=== PATIENT | male | born 1950 | race Caucasian/White ===

== ENCOUNTER 2017-03-31 22:51 | Emergency (ER) | payer OTHER ==
[2017-03-31 23:02] VITALS: BP 123/62; BMI 28.1
--- NOTE | 2017-03-31 23:29 | DR.GENAD ---
HPI - PCP Primary Care Physician: Lei Diego - Complaint/Symptoms Chief Complaint Doctors Comments: Patient had tripple by past surgery two weeks ago. Chief Complaint:: Pt states "that he thinks he over done it today and that he is hurting between shoulder blades pain strated when he layed down for bed. stated that she gave him a nitro and it eased it off some." - Source History Provided: Patient - Mode of Arrival Mode of Arrival: Wheelchair - Timing Onset of Chief Complaint: 03/31/17 PMH - PMH Past Medical History: Yes Past Medical History: Coronary Artery Disease, Diabetes, Hypertension Past Surgical History: Yes Surgical History: Other Past Surgical History Comment: 3x heart bypass - Family History History of Family Medical Conditions: Yes Family Medical History: Diabetes Mellitus, Cancer, [place], Coronary Artery Disease - Social History Alcohol Use: None Do you use any recreational Drugs:: No Lives With: Family Lives Where: Home - infectious screening Have you traveled outside the country in the last 6 months?: No ROS - Review of Systems Eyes: No Symptoms Reported ENTM: No Symptoms Reported Respiratoy: No Symptoms Reported Cardiovascular: No Symptoms Reported Gastrointestinal/Abdominal: No Symptoms Reported Genitourinary: No Symptoms Reported Neurological: No Symptoms Reported Musculoskeletal: No Symptoms Reported Integumentary: No Symptoms Reported Hematologic/Lymphatic: No Symptoms Reported Endocrine: No Symptoms Reported Psychiatric: No Symptoms Reported All Other Systems: Reviewed and Negative PE - Vital Signs Vitals: Temperature 98.4 F Pulse Rate 76 Respiratory Rate 18 Blood Pressure 123/62 O2 Sat by Pulse Oximetry 100 - General General Appearance: Alert, In No Apparent Distress - Head Head Exam: Normal Inspection, Atraumatic - Eyes Eye exam: Normal Appearance, PERRL, Scleral Icterus - ENT ENT Exam: Normal Exam External Ear Exam: Normal External Inspection TM/Canal Exam: Bilateral Normal Nose Exam: Normal Nose Exam Mouth Exam: Normal Inspection Throat Exam: Normal Inspection - Neck Neck Exam: Normal Inspection - Chest Chest Inspection: Normal Inspection - Respiratory Respiratory Exam: Normal Lung Sounds Bilat Respiratory Exam: Bilateral Clear to Auscultation - Cardiovascular Cardiovascular Exam: Regular Rate - Abdominal Exam Abdominal Exam: Normal Inspection Abdominal Tenderness: negative: RUQ, RLQ, LUQ, LLQ, Epigastrium, Suprapubic, Diffuse, Mild, Moderate, Severe, Other - Extremities Extremities Exam: Normal Inspection - Back Back Exam: Normal Inspection - Neurologic Neurological Exam: Alert, Oriented X3, CN II-XII Intact - Psychiatric Psychiatric Exam: Normal Affect, Normal Mood - Skin Skin Exam: Warm, Dry, Intact Course - Reevaluation 1st: Improved ROR - Labs Reviewed Laboratory Results Reviewed?: Yes Result Diagrams: 03/31/17 23:30 03/31/17 23:30 Laboratory: WBC 7.0 X10^3/uL (3.6-10.0) 03/31/17 23:30 RBC 3.80 X10^6/uL (4.7-6.0) L 03/31/17 23:30 Hgb 11.3 g/dL (13.5-18.0) L 03/31/17 23:30 Hct 32.9 % (42.0-54.0) L 03/31/17 23:30 MCV 86.7 fL (80.0-100.0) 03/31/17 23:30 MCH 29.8 pg (27.0-34.0) 03/31/17 23:30 MCHC 34.4 g/dL (33.0-35.0) 03/31/17 23:30 RDW 14.2 % (11.6-16.5) 03/31/17 23:30 Plt Count 212 X10^3/uL (150.0-450.0) 03/31/17 23:30 MPV 8.1 fL (7.4-11.0) 03/31/17 23:30 Neut % 64.7 % (42.0-75.0) 03/31/17 23:30 Lymph % 18.9 % (21.0-51.0) L 03/31/17 23:30 [place] % 8.8 % (0.0-13.0) 03/31/17 23:30 Eos % 6.8 % (0.9-2.9) H 03/31/17 23:30 Baso % 0.8 % (0.2-1.0) 03/31/17 23:30 Neut # 4.5 x10^3/uL (2.2-4.8) 03/31/17 23:30 Lymph # 1.3 X10^3/uL (1.3-2.9) 03/31/17 23:30 [place] # 0.6 x10^3/uL (0.3-0.8) 03/31/17 23:30 Eos # 0.5 x10^3/uL (0.0-0.2) H 03/31/17 23:30 Baso # 0.1 X10^3/uL (0.0-0.1) 03/31/17 23:30 Absolute Nucleated RBC 0.1 /100WBC 03/31/17 23:30 INR Target Range - 03/31/17 23:30 INR 1.08 (0.8-1.3) 03/31/17 23:30 Sodium 132 mmol/L (136-145) L 03/31/17 23:30 Corrected Sodium 137 mmol/L (136-145) 03/31/17 23:30 Potassium 4.3 mmol/L (3.5-5.1) 03/31/17 23:30 Chloride 99 mmol/L (98-107) 03/31/17 23:30 Carbon Dioxide 22.8 mmol/L (21-32) 03/31/17 23:30 BUN 31 mg/dL (7-18) H 03/31/17 23:30 Creatinine 1.75 mg/dL (0.70-1.30) H 03/31/17 23:30 Est GFR (MDRD) Af Amer 51 (>60) L 03/31/17 23:30 Est GFR (MDRD) Non-Af 42 (>60) L 03/31/17 23:30 Glucose 297 mg/dL (65-99) H 03/31/17 23:30 Calcium 8.7 mg/dL (8.5-10.1) 03/31/17 23:30 Corrected Calcium 9.6 mg/dL (8.5-10.1) 03/31/17 23:30 Phosphorus 3.4 mg/dL (2.6-4.7) 03/31/17 23:30 Magnesium 1.8 mg/dL (1.7-2.9) 03/31/17 23:30 Total Bilirubin 0.60 mg/dL (0.2-1.0) 03/31/17 23:30 AST 22 Units/L (15-37) 03/31/17 23:30 ALT 48 Units/L (12-78) 03/31/17 23:30 Alkaline Phosphatase 178 Units/L (46-116) H 03/31/17 23:30 Creatine Kinase 90 Units/L (39-308) 03/31/17 23:30 CK-MB (CK-2) 2.2 ng/mL (0-4.0) 03/31/17 23:30 CK/CKMB % Calc 2.4 % (<4) 03/31/17 23:30 Troponin I 0.02 ng/mL (0-1.5) 03/31/17 23:30 Total Protein 6.6 g/dL (6.4-8.2) 03/31/17 23:30 Albumin 2.9 g/dL (3.4-5.0) L 03/31/17 23:30 Globulin 3.7 g/dL (2.5-4.5) 03/31/17 23:30 Albumin/Globulin Ratio 0.8 Ratio (1.1-2.1) L 03/31/17 23:30 - XRAY XRAY Interpreted by: Radiologist (Chest: no cardiopulmonary disease) - Diagnosis Discharge Problem: Chest pain, exertional - Discharge Plan Condition: Stable - Follow ups/Referrals Follow ups/Referrals: LEI DIEGO [Primary Care Provider] - 3 days - Instructions
[2017-03-31 23:42] LABS: BASOPHILS # (AUTO) 0.1 X10^3/uL (0.0-0.1); BASOPHILS % (AUTO) 0.8 % (0.2-1.0); EOSINOPHILS # (AUTO) 0.5 x10^3/uL (0.0-0.2); EOSINOPHILS % (AUTO) 6.8 % (0.9-2.9); HEMATOCRIT 32.9 % (42.0-54.0); HEMOGLOBIN 11.3 g/dL (13.5-18.0); LYMPHOCYTES # (AUTO) 1.3 X10^3/uL (1.3-2.9); LYMPHOCYTES % (AUTO) 18.9 % (21.0-51.0); MEAN CORPUSCULAR HEMOGLOBIN 29.8 pg (27.0-34.0); MEAN CORPUSCULAR HGB CONC 34.4 g/dL (33.0-35.0); MEAN CORPUSCULAR VOLUME 86.7 fL (80.0-100.0); MEAN PLATELET VOLUME 8.1 fL (7.4-11.0); MONOCYTES # (AUTO) 0.6 x10^3/uL (0.3-0.8); MONOCYTES % (AUTO) 8.8 % (0.0-13.0); NEUTROPHILS # (AUTO) 4.5 x10^3/uL (2.2-4.8); NEUTROPHILS % (AUTO) 64.7 % (42.0-75.0); PLATELET COUNT 212 X10^3/uL (150.0-450.0); RED CELL DISTRIBUTION WIDTH 14.2 % (11.6-16.5)
[2017-03-31 23:58] LABS: CALCIUM 8.7 mg/dL (8.5-10.1); CARBON DIOXIDE 22.8 mmol/L (21-32); CREATININE 1.75 mg/dL (0.70-1.30); TROPONIN I 0.02 ng/mL (0-1.5)
[2017-04-01 00:12] LABS: ALBUMIN 2.9 g/dL (3.4-5.0); CKMB % 2.4 % (<4); COR CA(FOR HYPOALB) 9.6 mg/dL (8.5-10.1); CREATINE KINASE MB 2.2 ng/mL (0-4.0); MAGNESIUM 1.8 mg/dL (1.7-2.9); PHOSPHORUS 3.4 mg/dL (2.6-4.7); TOTAL PROTEIN 6.6 g/dL (6.4-8.2)
--- NOTE | 2017-04-01 00:22 | RAD ---
AP Chest Indication: Pain between shoulder blades Comparison: None available Findings: The trachea is midline. The cardiac silhouette is unremarkable. Previous median sternotomy is note d. Multiple clips are noted within the left thyroid bed/lower neck soft tissues. The lungs are clear without focal infiltrate or effusion. There is elevation left hemidiaphragm with suspected subsegme ntal atelectasis within the left lower lobe. The bony thorax is unremarkable. IMPRESSION: 1. No acute cardiopulmonary abnormality. Reported By:
== END 2017-04-01 00:42 | disposition home or self-care (01) ==
LOC: ER 22:51
DX: R07.89 Other chest pain (principal)
CPT/HCPCS: 36415; 71010; 80053; 82550; 82553; 83735; 84100; 84484; 85025; 85610; 93005; 93010; 99283

== ENCOUNTER 2017-11-18 10:06 | Emergency (ER) | payer OTHER ==
[2017-11-18 10:24] VITALS: BMI 29.2
[2017-11-18] MEDS ORDERED: NS 1000 ML 1,000 ML ONE (10:34)
[2017-11-18] MEDS ORDERED: NS 1000 ML 1,000 ML IV ONE (10:36)
[2017-11-18] MEDS ORDERED: ZOFRAN INJ 4 MG VIAL IVP ONE (10:40)
--- NOTE | 2017-11-18 10:45 | DR.GENAD ---
HPI - PCP Primary Care Physician: BETH - Complaint/Symptoms Chief Complaint Doctors Comments: Patient is complaining of nausea, vomiting and diarrhea for the past 24 hours getting worst today. He denies fever, chills , cold, cough, chest pain or SOB. States he has been having severe vertigo yesterday before the others started. He has decreased appetite and has not had much to eat today. states he started with vertigo at 8 am and the vomiting followed. States he is a patient of Dr. Whaley and he has a problem with diabetes and high blood pressure but he has not had any of his medicines today. Patient slide down last night but did not have any injuries according to family members. Patient is complaining of lower abdominal pain but denies hematuria or raina. Chief Complaint:: PT C/O N/V/D WEAKNESS, VERTIGO, AND ABD PAIN THAT HAS STARTED LAST NIGHT. PT'S STATES PT HAS A HISTORY OF VERTIGO AND HE SLID DOWN LAST NIGHT OUT OF THE BED W/O INJURY. - Nurses notes reviewed Nurses Notes Review: Yes - Source History Provided: Patient, EMS - Mode of Arrival Mode of Arrival: EMS - Timing Onset of Chief Complaint: 11/17/17 Came on: Gradually - Duration Duration: Intermittent How lon Duration: Hours - Location Location: lower abdominal pain with nasuea, diarrhea - Severity Severity: Moderate - Modifying Factors Worsens:: nothing Improves:: nothing PMH - PMH Past Medical History: Yes Past Medical History: Coronary Artery Disease, CVA, Diabetes, Hypertension Past Surgical History: Yes Surgical History: CABG/Valve Surgery, Other Past Surgical History Comment: CARDOIT ARTERY - Family History History of Family Medical Conditions: Yes Family Medical History: Diabetes Mellitus, Cancer, [place], Coronary Artery Disease - Social History Does any household member use tobacco: No Alcohol Use: None Do you use any recreational Drugs:: No Lives With: Family Lives Where: Home - infectious screening In the last 2 months have you had wt loss of >10#?: NO Have you had fever, night sweats or hemotysis?: No Have you traveled outside the country in the last 6 months?: No Isolation: Standard ROS - Review of Systems Constitutional: No Symptoms Reported, Weakness, Fatigue, Loss of Appetite Eyes: No Symptoms Reported. negative: See HPI, Eye Pain, Blurred Vision, Tearing, Discharge, Photophobia, Diplopia, Other ENTM: No Symptoms Reported. negative: See HPI, Ear Pain, Ear Discharge, Pulling on Ears, Hearing Loss, Nose Pain, Nose Discharge, Epistaxis, Nose Congestion, Mouth Pain, Mouth Swelling, Loose Teeth, Drooling, Throat Pain, Throat Swelling, Ear Foreign Body Respiratoy: No Symptoms Reported Cardiovascular: No Symptoms Reported. negative: See HPI, Chest Pain, Edema, Palpitations, Syncope, Cyanosis, Skin Mottling, Other Gastrointestinal/Abdominal: Abdominal Pain, Diarrhea, Nausea, Vomiting. negative: No Symptoms Reported, See HPI, Constipation, Food Intolerance, Other Genitourinary: No Symptoms Reported. negative: See HPI, Discharge, Dysuria, Frequency, Hematuria, Pain, Bleeding, Other Neurological: No Symptoms Reported, Weakness, Dizziness, Problems Walking, Speech Problem. negative: See HPI, Anxiety, Depressed, Emotional Problems, Headache, Numbness, Paresthesia, Pre-existing Deficit, Seizure, Tingling, Tremors, Other Musculoskeletal: No Symptoms Reported Integumentary: No Symptoms Reported Hematologic/Lymphatic: No Symptoms Reported, Easy Bleeding (lesions on hand that burst and bleeds), Easy Bruising Endocrine: No Symptoms Reported Psychiatric: No Symptoms Reported. negative: See HPI, Anxiety, Depression, Hallucinations, Excessive crying, Suicidal, Other PE - Vital Signs Vitals: Temperature 97.2 F Pulse Rate [Right Radial] 74 Pulse Rate 73 Respiratory Rate 18 Blood Pressure [Left Arm] 138/73 Blood Pressure 102/57 O2 Sat by Pulse Oximetry 100 - General Limitations: No Limitations General Appearance: Alert, In Distress (slight) - Head Head Exam: Normal Inspection, Atraumatic, Normocephalic - Eyes Eye exam: Normal Appearance, PERRL, EOMI. negative: Scleral Icterus, Conjunctival Injection, Nystagmus, Miosis, Mydrasis, Periorbital Swelling, Periorbital Tenderness, Other - ENT ENT Exam: Normal Exam, Normal Oropharynx, Normal External Ear Exam, Mucous Membranes Moist, TM's Normal Bilaterally External Ear Exam: Normal External Inspection TM/Canal Exam: Bilateral Normal Nose Exam: Normal Nose Exam Mouth Exam: Normal Inspection. negative: Drooling, Trismus, Lip Swelling, Tongue Elevation, Tongue Swelling, Laceration, Other Throat Exam: Normal Inspection. negative: Tonsillar Erythema, Tonsillomegaly, Tonsillar Exudate, R Peritonsillar Mass, L Peritonsillar Mass, Muffled Voice, Other - Neck Neck Exam: Normal Inspection, Full ROM, Trachea Midline - Chest Chest Inspection: Normal Inspection, Symmetric Chest Wall Rise. negative: Tenderness, Rash, Abscess, Other - Respiratory Respiratory Exam: Normal Lung Sounds Bilat. negative: Accessory Muscle Use, Chest Wall Tenderness, Prolonged Expiratory Phase, Respiratory Distress, Stridor , Other Respiratory Exam: Bilateral Clear to Auscultation - Cardiovascular Cardiovascular Exam: Regular Rate, Normal Rhythm, Normal Heart Sounds - Abdominal Exam Abdominal Exam: Normal Inspection, Normal Bowel Sounds, Soft, Tenderness ( slight suprapubic tenderness) Abdominal Tenderness: Suprapubic, Mild - Extremities Extremities Exam: Normal Inspection, Full ROM, Normal Capillary Refill. negative: Tenderness, Edema, Joint Swelling, Calf Tenderness, Other - Back Back Exam: Normal Inspection, Full ROM. negative: Tenderness, (R) CVA Tenderness, (L) CVA Tenderness, Muscle Spasm, Paraspinal Tenderness, Vertebral Tenderness, Rashes, (R) Sciatic Notch Tenderness, (L) Sciatic Notch Tendern, (R ) Straight Leg Raise, (L) Straight Leg Raise, Other - Neurologic Neurological Exam: Alert, Oriented X3, CN II-XII Intact, Reflexes Normal. negative: Normal Gait (gait not tested) - Psychiatric Psychiatric Exam: Normal Affect, Normal Mood. negative: Depressed, Agitated, Anxious, Flat Affect, Manic, Homicidal Ideation, Suicidal Ideation, Other - Skin Skin Exam: Warm, Dry, Intact, Normal Color. negative: Rash, Cyanosis, Diaphoresis, Erythema, Pallor, Mottled, Other ROR - Labs Reviewed Laboratory Results Reviewed?: Yes (all labs and x-ray results reviewed and discussed with patient) Result Diagrams: 11/18/17 10:52 11/18/17 10:52 Laboratory: WBC 4.0 X10^3/uL (3.6-10.0) 11/18/17 10:52 RBC 4.56 X10^6/uL (4.7-6.0) L 11/18/17 10:52 Hgb 14.2 g/dL (13.5-18.0) 11/18/17 10:52 Hct 40.6 % (42.0-54.0) L 11/18/17 10:52 MCV 89.1 fL (80.0-100.0) 11/18/17 10:52 MCH 31.1 pg (27.0-34.0) 11/18/17 10:52 MCHC 34.8 g/dL (33.0-35.0) 11/18/17 10:52 RDW 13.9 % (11.6-16.5) 11/18/17 10:52 Plt Count 115 X10^3/uL (150.0-450.0) L 11/18/17 10:52 MPV 9.1 fL (7.4-11.0) 11/18/17 10:52 Neut % 75.3 % (42.0-75.0) H 11/18/17 10:52 Lymph % 15.4 % (21.0-51.0) L 11/18/17 10:52 [place] % 8.6 % (0.0-13.0) 11/18/17 10:52 Eos % 0.4 % (0.9-2.9) L 11/18/17 10:52 Baso % 0.3 % (0.2-1.0) 11/18/17 10:52 Neut # 3.0 x10^3/uL (2.2-4.8) 11/18/17 10:52 Lymph # 0.6 X10^3/uL (1.3-2.9) L 11/18/17 10:52 [place] # 0.3 x10^3/uL (0.3-0.8) 11/18/17 10:52 Eos # 0.0 x10^3/uL (0.0-0.2) 11/18/17 10:52 Baso # 0.0 X10^3/uL (0.0-0.1) 11/18/17 10:52 Absolute Nucleated RBC 0.1 /100WBC 11/18/17 10:52 INR Target Range - 11/18/17 10:52 INR 1.11 (0.8-1.3) 11/18/17 10:52 PTT 30.9 SECONDS (22.9-36.5) 11/18/17 10:52 PTT Comment - 11/18/17 10:52 Sodium 133 mmol/L (136-145) L 11/18/17 10:52 Corrected Sodium 135 mmol/L (136-145) L 11/18/17 10:52 Potassium 5.2 mmol/L (3.5-5.1) H 11/18/17 10:52 Chloride 99 mmol/L (98-107) 11/18/17 10:52 Carbon Dioxide 25.1 mmol/L (21-32) 11/18/17 10:52 BUN 34 mg/dL (7-18) H 11/18/17 10:52 Creatinine 2.03 mg/dL (0.70-1.30) H 11/18/17 10:52 Est GFR (MDRD) Af Amer 43 (>60) L 11/18/17 10:52 Est GFR (MDRD) Non-Af 35 (>60) L 11/18/17 10:52 Glucose 198 mg/dL (65-99) H 11/18/17 10:52 Calcium 8.6 mg/dL (8.5-10.1) 11/18/17 10:52 Corrected Calcium TNP 11/18/17 10:52 Magnesium 2.0 mg/dL (1.7-2.9) 11/18/17 10:52 Total Bilirubin 0.60 mg/dL (0.2-1.0) 11/18/17 10:52 AST 30 Units/L (15-37) 11/18/17 10:52 ALT 47 Units/L (12-78) 11/18/17 10:52 Alkaline Phosphatase 105 Units/L (46-116) 11/18/17 10:52 Creatine Kinase 243 Units/L (39-308) 11/18/17 10:52 CK-MB (CK-2) 1.4 ng/mL (0-4.0) 11/18/17 10:52 CK/CKMB % Calc 0.6 % (<4) 11/18/17 10:52 Troponin I < 0.02 ng/mL (0-1.5) 11/18/17 10:52 Total Protein 7.2 g/dL (6.4-8.2) 11/18/17 10:52 Albumin 3.4 g/dL (3.4-5.0) 11/18/17 10:52 Globulin 3.8 g/dL (2.5-4.5) 11/18/17 10:52 Albumin/Globulin Ratio 0.9 Ratio (1.1-2.1) L 11/18/17 10:52 Amylase 50 Units/L (25-115) 11/18/17 10:52 Lipase 121 Units/L (73-393) 11/18/17 10:52 - XRAY XRAY Interpreted by: Radiologist (CT head: No definite evidence of an acute intracranial process. Chronic infarctionleft MCA. Chronic bilateral punctate lacunar infarctions basal ganglia.) XRAY Findings: Abdominal survey: Unremarkable abdomen Lungs clear. Elevated left hemidiap - EKG Rate: 79 [place]: Normal Rhythm: NSR ST: Nonsp - Diagnosis Discharge Problem: Gastroenteritis, acute, Cerebrovascular accident, old, Hyperkalemia, Vertigo Diabetes mellitus Qualifiers: Diabetes mellitus type: type 2 - Discharge Plan Disposition: HOME, SELF-CARE Condition: Stable Prescriptions: Meclizine HCl [Antivert Tab 25 mg] 25 mg PO TID PRN #21 tab PRN Reason: MOTION SICKNESS Ondansetron [Zofran Odt] 4 mg PO Q8H PRN #12 tab PRN Reason: Nausea/Vomiting - Follow ups/Referrals Follow ups/Referrals: MAGALY CAMPOS [Primary Care Provider] - 3 days - Instructions Instructions: Viral Gastroenteritis, Adult, [id number]-[id number], Vertigo, [id number] , Hyperkalemia, Type 2 Diabetes Mellitus, Adult, [id number]
[2017-11-18 11:14] LABS: BASOPHILS % (AUTO) 0.3 % (0.2-1.0); EOSINOPHILS % (AUTO) 0.4 % (0.9-2.9); HEMATOCRIT 40.6 % (42.0-54.0); HEMOGLOBIN 14.2 g/dL (13.5-18.0); LYMPHOCYTES # (AUTO) 0.6 X10^3/uL (1.3-2.9); LYMPHOCYTES % (AUTO) 15.4 % (21.0-51.0); MEAN CORPUSCULAR HEMOGLOBIN 31.1 pg (27.0-34.0); MEAN CORPUSCULAR HGB CONC 34.8 g/dL (33.0-35.0); MEAN CORPUSCULAR VOLUME 89.1 fL (80.0-100.0); MEAN PLATELET VOLUME 9.1 fL (7.4-11.0); MONOCYTES # (AUTO) 0.3 x10^3/uL (0.3-0.8); MONOCYTES % (AUTO) 8.6 % (0.0-13.0); NEUTROPHILS % (AUTO) 75.3 % (42.0-75.0); PLATELET COUNT 115 X10^3/uL (150.0-450.0); RED BLOOD COUNT 4.56 X10^6/uL (4.7-6.0); RED CELL DISTRIBUTION WIDTH 13.9 % (11.6-16.5)
[2017-11-18] MEDS ORDERED: ZOFRAN INJ 4 MG VIAL ONE (11:14)
[2017-11-18 11:28] LABS: ALANINE AMINOTRANSFERASE 47 Units/L (12-78); ALBUMIN 3.4 g/dL (3.4-5.0); ALKALINE PHOSPHATASE 105 Units/L (46-116); AMYLASE 50 Units/L (25-115); ASPARTATE AMINO TRANSFERASE 30 Units/L (15-37); BLOOD UREA NITROGEN 34 mg/dL (7-18); CALCIUM 8.6 mg/dL (8.5-10.1); CARBON DIOXIDE 25.1 mmol/L (21-32); CHLORIDE 99 mmol/L (98-107); CKMB % 0.6 % (<4); COR NA(FOR HYPERGLY) 135 mmol/L (136-145); CREATINE KINASE 243 Units/L (39-308); CREATINE KINASE MB 1.4 ng/mL (0-4.0); CREATININE 2.03 mg/dL (0.70-1.30); LIPASE 121 Units/L (73-393); SODIUM 133 mmol/L (136-145); TOTAL PROTEIN 7.2 g/dL (6.4-8.2); TROPONIN I < 0.02 ng/mL (0-1.5); eGFR BLACK RACES 43 (>60); eGFR NON BLACK RACES 35 (>60)
--- NOTE | 2017-11-18 12:09 | CT ---
CT HEAD WITHOUT CONTRAST CLINICAL HISTORY: 66-year-old male with nausea, vomiting and diarrhea with weakness and vertigo. COMPARISON: None. TECHNIQUE: Multiple, non-contrasted axial CT images were obtained from the skull base to the cranial vertex. Coronal and sagittal reformats were performed. FINDINGS: There are no abnormal intra- or extra-axial fluid collections, midline shift, or mass effec t. Hekc-white differentiation is normal. Global cortical involutional changes are present that are ad vanced for the patient's stated age. The ventricular system is mildly enlarged but commensurate with the degree of sulcal prominence. Chronic infarction in the left MCA territory involving the posterior aspect of the frontal lobe with associated encephalomalacia, chronic bilateral punctate lacunar infa rctions of the basal ganglia. Periventricular and supraventricular white matter hypodensity is presen t that is nonspecific in appearance, but most likely to represent microvascular ischemic changes. Ath erosclerotic vascular calcification is present within the carotid siphons and distal vertebral arteri es. The imaged paranasal sinuses, mastoid air cells, and tympanic spaces are clear. IMPRESSION: 1. No definite evidence of an acute intracranial process. If clinical concern persists for acute stro ke, consider MRI/MRA brain. 2. Chronic infarction left MCA territory with encephalomalacia involving the posterior aspect of the frontal lobe. 3. Chronic bilateral punctate lacunar infarctions basal ganglia. 4. Moderate microvascular white matter ischemic changes, with associated volume loss. Reported By:
--- NOTE | 2017-11-18 12:25 | RAD ---
HISTORY: Nausea, vomiting, abdominal pain Study: Flat and upright abdomen, PA chest Comparison: None Findings: The abdominal gas pattern is nonspecific and nonobstructive. There is no evidence for pneumoperitoneu m. No abnormal masses or abnormal calcifications are identified. The chest is clear. The left hemidia phragm is elevated. IMPRESSION: Unremarkable abdomen Lungs clear Elevated left hemidiaphragm Reported By:
[2017-11-18 13:06] VITALS: BP 138/73
== END 2017-11-18 15:22 | disposition home or self-care (01) ==
LOC: ER 10:15
DX: K52.89 Other specified noninfective gastroenteritis and colitis (principal); I63.8 Other cerebral infarction; E87.5 Hyperkalemia; R42 Dizziness and giddiness; E11.9 Type 2 diabetes mellitus without complications; J98.6 Disorders of diaphragm
CPT/HCPCS: 36415; 70450; 74022; 80053; 82150; 82550; 82553; 83690; 83735; 84484; 85025; 85610; 85730; 93005; 93010; 96365; 96374; 99283; 99284; A4216; A4222; J2405

== ENCOUNTER 2018-10-11 10:02 | Observation (INO) ==
[2018-10-11] MEDS ORDERED: FORTAZ or TAZICEF VIAL INJ IVP SCH (12:19)
[2018-10-11] MEDS ORDERED: TUSSIONEX PENNKINETIC SUSP PO PRN (12:19)
[2018-10-11] MEDS: DUONEB 0.5 MG/3 MG NEB SCH ×3 (12:45→20:30)
[2018-10-11 12:48] LABS: BASOPHILS % (AUTO) 0.5 % (0.2-1.0); EOSINOPHILS % (AUTO) 0.8 % (0.9-2.9); HEMATOCRIT 39.1 % (42.0-54.0); HEMOGLOBIN 13.7 g/dL (13.5-18.0); LYMPHOCYTES # (AUTO) 1.5 X10^3/uL (1.3-2.9); LYMPHOCYTES % (AUTO) 23.6 % (21.0-51.0); MEAN CORPUSCULAR HEMOGLOBIN 31.4 pg (27.0-34.0); MEAN CORPUSCULAR HGB CONC 35.1 g/dL (33.0-35.0); MEAN CORPUSCULAR VOLUME 89.4 fL (80.0-100.0); MEAN PLATELET VOLUME 8.7 fL (7.4-11.0); MONOCYTES # (AUTO) 0.6 x10^3/uL (0.3-0.8); MONOCYTES % (AUTO) 9.4 % (0.0-13.0); NEUTROPHILS # (AUTO) 4.1 x10^3/uL (2.2-4.8); NEUTROPHILS % (AUTO) 65.7 % (42.0-75.0); PLATELET COUNT 119 X10^3/uL (150.0-450.0); RED BLOOD COUNT 4.37 X10^6/uL (4.7-6.0); RED CELL DISTRIBUTION WIDTH 13.5 % (11.6-16.5); WHITE BLOOD COUNT 6.2 X10^3/uL (3.6-10.0)
[2018-10-11 13:01] LABS: ALANINE AMINOTRANSFERASE 12 Units/L (12-78); ALBUMIN 3.4 g/dL (3.4-5.0); ALKALINE PHOSPHATASE 128 Units/L (46-116); ASPARTATE AMINO TRANSFERASE 37 Units/L (15-37); BLOOD UREA NITROGEN 34 mg/dL (7-18); CALCIUM 8.9 mg/dL (8.5-10.1); CARBON DIOXIDE 27.3 mmol/L (21-32); CHLORIDE 99 mmol/L (98-107); COR NA(FOR HYPERGLY) 134 mmol/L (136-145); CREATININE 1.85 mg/dL (0.70-1.30); SODIUM 133 mmol/L (136-145); eGFR NON BLACK RACES 39 (>60)
[2018-10-11] MEDS ORDERED: NS 1/2 1000 ML IV 1,000 ML IV ONE (13:15)
[2018-10-11] MEDS: NS 1/2 1000 ML IV 1,000 ML IV SCH (13:41)
[2018-10-11] MEDS: ROBITUSSIN DM PO SCH ×3 (13:42→20:18)
--- NOTE | 2018-10-11 13:48 | RAD ---
HISTORY: Right side rib pain following fall Study: Right rib detail Comparison: None Technique: PA chest lateral chest and right rib obliques films (4) Findings: There is elevation the left hemidiaphragm which is chronic unchanged from 04/01/2017. There are sternotomy wires and surgical clips along the left heart border and in the left apex. The heart size and configuration are normal. The upper abdominal bowel gas pattern is normal. There are sternotomy fixation plates across the sternum from prior sternotomy. Right ribs and left ribs are normal. The lungs are clear there are no infiltrates or effusions. There is no pneumothorax. IMPRESSION: 1. Normal chest and right rib detail. Prior sternotomy. Chronic elevation left hemidiaphragm. 2. Normal T-spine and normal right rib detail no acute or old rib fractures identified. Reported By:
[2018-10-11] MEDS ORDERED: LEVAQUIN PREMIX IV 500 MG 500 MG/100 ML BAG IV SCH (14:00)
[2018-10-11] MEDS: SINEMET (PLAIN) 25/250 MG PO SCH ×2 (14:59→20:19)
[2018-10-11 15:11] VITALS: BMI 29.5
[2018-10-11] MEDS ORDERED: FLUVIRIN IM ONE (15:11)
[2018-10-11] MEDS ORDERED: PREVNAR 13 IM ONE (15:11)
[2018-10-11] MEDS ORDERED: SALINE 3% 15 ML NEB TX NEB ONE (17:24)
[2018-10-11] MEDS: FORTAZ or TAZICEF VIAL INJ IVP SCH (20:18)
[2018-10-11] MEDS ORDERED: COLACE CAP 100 MG PO PRN (20:21)
[2018-10-12] MEDS: NS 1/2 1000 ML IV 1,000 ML IV SCH ×2 (02:30→16:50)
[2018-10-12] MEDS ORDERED: NS 1/2 1000 ML IV 1,000 ML IV ONE ×2 (02:43→16:43)
[2018-10-12 05:15] LABS: BASOPHILS % (AUTO) 0.4 % (0.2-1.0); EOSINOPHILS % (AUTO) 0.6 % (0.9-2.9); HEMOGLOBIN 13.1 g/dL (13.5-18.0); LYMPHOCYTES # (AUTO) 1.7 X10^3/uL (1.3-2.9); LYMPHOCYTES % (AUTO) 31.7 % (21.0-51.0); MEAN CORPUSCULAR HEMOGLOBIN 31.6 pg (27.0-34.0); MEAN CORPUSCULAR HGB CONC 35.3 g/dL (33.0-35.0); MEAN CORPUSCULAR VOLUME 89.3 fL (80.0-100.0); MEAN PLATELET VOLUME 8.2 fL (7.4-11.0); MONOCYTES # (AUTO) 0.5 x10^3/uL (0.3-0.8); MONOCYTES % (AUTO) 9.7 % (0.0-13.0); NEUTROPHILS # (AUTO) 3.1 x10^3/uL (2.2-4.8); NEUTROPHILS % (AUTO) 57.6 % (42.0-75.0); PLATELET COUNT 104 X10^3/uL (150.0-450.0); RED BLOOD COUNT 4.14 X10^6/uL (4.7-6.0); RED CELL DISTRIBUTION WIDTH 13.5 % (11.6-16.5); WHITE BLOOD COUNT 5.4 X10^3/uL (3.6-10.0)
[2018-10-12 05:22] LABS: CALCIUM 8.8 mg/dL (8.5-10.1); CARBON DIOXIDE 25.3 mmol/L (21-32); COR CA(FOR HYPOALB) 9.6 mg/dL (8.5-10.1); CREATININE 1.71 mg/dL (0.70-1.30); TOTAL PROTEIN 6.6 g/dL (6.4-8.2)
--- NOTE | 2018-10-12 05:52 | RAD ---
Chest, one view Indication: Shortness of breath Comparison: 10/11/2018 Findings: The heart is stable in size. Prior CABG changes noted. There is stable elevation of the left hemidiaphragm. No focal infiltrate, effusion or pneumothorax is identified. There is no acute osseous abnormality. Impression: No acute cardiopulmonary abnormality or significant interval change. Reported By:
[2018-10-12] MEDS: FORTAZ or TAZICEF VIAL INJ IVP SCH ×2 (08:51→20:15)
[2018-10-12] MEDS: SINEMET (PLAIN) 25/250 MG PO SCH ×3 (08:51→20:16)
[2018-10-12] MEDS: ROBITUSSIN DM PO SCH ×4 (08:51→20:16)
[2018-10-12] MEDS: DUONEB 0.5 MG/3 MG NEB SCH ×4 (08:58→20:47)
[2018-10-12] MEDS ORDERED: NITROSTAT SL PRN (09:52)
[2018-10-12] MEDS ORDERED: ANTIVERT TAB 25 MG PO PRN (09:52)
[2018-10-12] MEDS ORDERED: VITAMIN D (1.25MG) PO SCH (10:00)
[2018-10-12] MEDS: SILODOSIN 4 MG PO SCH (10:58)
[2018-10-12] MEDS: ALDACTONE TAB 25 MG PO SCH (11:01)
[2018-10-12] MEDS: ASPIRIN EC 81 MG PO SCH (11:01)
[2018-10-12] MEDS: REQUIP PO SCH ×2 (11:01→20:15)
[2018-10-12] MEDS: LOVAZA PO SCH (11:01)
[2018-10-12] MEDS: LOPRESSOR TAB 25 MG PO SCH ×2 (11:01→20:16)
[2018-10-12] MEDS: ZyrTEC TAB 10 MG PO SCH (11:02)
[2018-10-12] MEDS: TAB-A-VITE PO SCH (11:02)
[2018-10-12] MEDS: HumuLIN R SC PRN ×3 (11:57→20:17)
[2018-10-12] MEDS: ULORIC PO SCH (16:51)
[2018-10-12] MEDS ORDERED: PREVNAR 13 IM ONE (18:29)
--- NOTE | 2018-10-12 20:31 | DR.UPDATE ---
H&P Update History and Physical Update: History and Physical reviewed and patient examined. Changes noted: Yes with the following: WAS SEEN IN THE OFFICE BY MARQUISE BOYD YESTERDAY. HE WAS ADMITTED TO THE HOSPITAL FOR FURTHER EVALUATION AND TREATMENT OF PNEUMONIA, DEHYDRATION, AND GENERALIZED WEAKNESS. A H&P WAS COMPLETED PRIOR TO ADMISSION. PATIENT HAS BEEN SEEN AND EXAMINED WITH NO CHANGES NOTED TO H&P.
[2018-10-12] MEDS ORDERED: AVODART PO SCH (21:00)
[2018-10-13] MEDS ORDERED: NS 1/2 1000 ML IV 1,000 ML IV ONE (04:52)
[2018-10-13] MEDS: NS 1/2 1000 ML IV 1,000 ML IV SCH (05:29)
[2018-10-13] MEDS: HumuLIN R SC PRN (05:31)
--- NOTE | 2018-10-13 05:54 | RAD ---
Examination: AP chest History: SOB Comparison 10/12/2018 Findings: Continued normal heart size. Lungs clear of active process. Stable position of the elevated left hemidiaphragm. No pneumothorax or pleural fluid. Impression: No interval change. Reported By:
[2018-10-13 06:48] LABS: BASOPHILS % (AUTO) 0.4 % (0.2-1.0); EOSINOPHILS # (AUTO) 0.1 x10^3/uL (0.0-0.2); EOSINOPHILS % (AUTO) 2.6 % (0.9-2.9); HEMATOCRIT 34.8 % (42.0-54.0); HEMOGLOBIN 12.5 g/dL (13.5-18.0); LYMPHOCYTES # (AUTO) 1.6 X10^3/uL (1.3-2.9); LYMPHOCYTES % (AUTO) 31.9 % (21.0-51.0); MEAN CORPUSCULAR HEMOGLOBIN 31.5 pg (27.0-34.0); MEAN CORPUSCULAR HGB CONC 35.8 g/dL (33.0-35.0); MEAN CORPUSCULAR VOLUME 87.9 fL (80.0-100.0); MEAN PLATELET VOLUME 8.3 fL (7.4-11.0); MONOCYTES # (AUTO) 0.4 x10^3/uL (0.3-0.8); MONOCYTES % (AUTO) 9.2 % (0.0-13.0); NEUTROPHILS # (AUTO) 2.7 x10^3/uL (2.2-4.8); NEUTROPHILS % (AUTO) 55.9 % (42.0-75.0); PLATELET COUNT 101 X10^3/uL (150.0-450.0); RED BLOOD COUNT 3.96 X10^6/uL (4.7-6.0); RED CELL DISTRIBUTION WIDTH 13.7 % (11.6-16.5); WHITE BLOOD COUNT 4.9 X10^3/uL (3.6-10.0)
[2018-10-13 06:57] LABS: ALANINE AMINOTRANSFERASE 31 Units/L (12-78); ALBUMIN 2.9 g/dL (3.4-5.0); ALKALINE PHOSPHATASE 123 Units/L (46-116); ASPARTATE AMINO TRANSFERASE 42 Units/L (15-37); BLOOD UREA NITROGEN 27 mg/dL (7-18); CALCIUM 8.9 mg/dL (8.5-10.1); CARBON DIOXIDE 24.6 mmol/L (21-32); CHLORIDE 99 mmol/L (98-107); COR CA(FOR HYPOALB) 9.8 mg/dL (8.5-10.1); COR NA(FOR HYPERGLY) 133 mmol/L (136-145); CREATININE 1.44 mg/dL (0.70-1.30); SODIUM 132 mmol/L (136-145); TOTAL PROTEIN 6.4 g/dL (6.4-8.2); eGFR NON BLACK RACES 52 (>60)
[2018-10-13] MEDS: DUONEB 0.5 MG/3 MG NEB SCH (08:41)
[2018-10-13] MEDS ORDERED: FERROUS GLUCONATE PO SCH (09:00)
[2018-10-13] MEDS ORDERED: VITAMIN D (1.25MG) PO SCH (09:00)
[2018-10-13] MEDS: ULORIC PO SCH (09:40)
[2018-10-13] MEDS: LOVAZA PO SCH (09:41)
[2018-10-13] MEDS: ALDACTONE TAB 25 MG PO SCH (09:42)
[2018-10-13] MEDS: REQUIP PO SCH (09:42)
[2018-10-13] MEDS: ZyrTEC TAB 10 MG PO SCH (09:42)
[2018-10-13] MEDS: SINEMET (PLAIN) 25/250 MG PO SCH ×3 (09:43→12:11)
[2018-10-13] MEDS: ASPIRIN EC 81 MG PO SCH (09:44)
[2018-10-13] MEDS: TAB-A-VITE PO SCH (09:44)
[2018-10-13] MEDS: LOPRESSOR TAB 25 MG PO SCH (09:44)
[2018-10-13] MEDS: ROBITUSSIN DM PO SCH (09:45)
[2018-10-13] MEDS: FORTAZ or TAZICEF VIAL INJ IVP SCH (09:45)
[2018-10-13] MEDS: SILODOSIN 4 MG PO SCH (09:57)
[2018-10-13] MEDS ORDERED: FLUVIRIN IM ONE (11:50)
[2018-10-13] MEDS ORDERED: PNEUMOVAX 23 IM ONE (11:50)
[2018-10-13 12:40] VITALS: BP 161/75
== END 2018-10-13 12:25 | disposition home or self-care (01) ==
LOC: MED/SURG
PROVIDERS: ADMIT Internal Medicine; ATTEND Internal Medicine
DX: I25.10 Atherosclerotic heart disease of native coronary artery without angina pectoris; M13.89 Other specified arthritis, multiple sites; E86.0 Dehydration; N18.9 Chronic kidney disease, unspecified; I12.9 Hypertensive chronic kidney disease with stage 1 through stage 4 chronic kidney disease, or unspecified chronic kidney disease; R13.11 Dysphagia, oral phase; M62.81 Muscle weakness (generalized); J18.8 Other pneumonia, unspecified organism; Z23 Encounter for immunization
CPT/HCPCS: 36415; 71010; 71045; 71111; 80053; 85025; 87040; 92610; 94640; 94760; 97161; 99217; A4222; 90670; G0378; J0713; J1815; J1956; J7620

== ENCOUNTER 2019-04-27 20:47 | Inpatient (IN) ==
[2019-04-27 21:22] VITALS: BMI 29.1
--- NOTE | 2019-04-27 23:34 | DR.GENAD ---
HPI Time Seen Time Seen by Provider: 04/27/19 23:14 PCP Primary Care Physician: MAGALY CAMPOS Complaint/Symptoms Chief Complaint:: " HE HAS A COLD HE HAS BEEN COUGHING AND HAVING DIFFICULTY WALKING AND VOMITING. ALSO HAVING PAIN IN HIS RIGHT SIDE AROUND HIS BREAST AREA. THIS ALL STARTED YESTERDAY HE SEEN HIS PRIMARY YESTERDAY AND THEY GAVE HIM A ROCEPHIN SHOT. Source History Provided: Patient and Family Member Mode of Arrival Mode of Arrival: Wheelchair Timing Onset of Chief Complaint: 04/26/19 PMH PMH Past Medical History: Yes Past Medical History: Coronary Artery Disease, CVA, Diabetes and Hypertension Past Surgical History: Yes Surgical History: CABG/Valve Surgery and Other Past Surgical History Comment: TRIPLE BYPASS 2016 Family History History of Family Medical Conditions: Yes Family Medical History: Cancer and [place] Social History Alcohol Use: None Do you use any recreational Drugs:: No Lives Where: Home infectious screening Have you traveled outside the country in the last 6 months?: No PE Vital Signs Vitals: Temperature 98.0 F Pulse Rate 86 Respiratory Rate 18 Blood Pressure [Left Arm] 161/75 Blood Pressure 124/58 O2 Sat by Pulse Oximetry 97 ROR Labs Reviewed Result Diagrams: 04/27/19 23:27 04/27/19 23:27 Laboratory: WBC 12.8 X10^3/uL (3.6-10.0) H 04/27/19 23:27 RBC 3.79 X10^6/uL (4.7-6.0) L 04/27/19 23:27 Hgb 11.9 g/dL (13.5-18.0) L 04/27/19 23:27 Hct 34.6 % (42.0-54.0) L 04/27/19 23:27 MCV 91.3 fL (80.0-100.0) 04/27/19 23:27 MCH 31.5 pg (27.0-34.0) 04/27/19 23:27 MCHC 34.6 g/dL (33.0-35.0) 04/27/19 23:27 RDW 13.7 % (11.6-16.5) 04/27/19 23:27 Plt Count 148 X10^3/uL (150.0-450.0) L 04/27/19 23:27 MPV 8.8 fL (7.4-11.0) 04/27/19 23:27 Neut % (Auto) 87.9 % (42.0-75.0) H 04/27/19 23:27 Lymph % (Auto) 6.2 % (21.0-51.0) L 04/27/19 23:27 [place] % (Auto) 5.6 % (0.0-13.0) 04/27/19 23: Eos % (Auto) 0.1 % (0.9-2.9) L 04/27/19 23: Baso % (Auto) 0.2 % (0.2-1.0) 04/27/19 23: Neut # (Auto) 11.2 x10^3/uL (2.2-4.8) H 04/27/19 23:27 Lymph # (Auto) 0.8 X10^3/uL (1.3-2.9) L 04/27/19 23:27 [place] # (Auto) 0.7 x10^3/uL (0.3-0.8) 04/27/19 23: Eos # (Auto) 0.0 x10^3/uL (0.0-0.2) 04/27/19 23: Baso # (Auto) 0.0 X10^3/uL (0.0-0.1) 04/27/19 23: Absolute Nucleated RBC 0.0 /100WBC 04/27/19 23:27 Sodium 129 mmol/L (136-145) L 04/27/19 23:27 Corrected Sodium 132 mmol/L (136-145) L 04/27/19 23: Potassium 4.6 mmol/L (3.5-5.1) 04/27/19 23: Chloride 97 mmol/L (98-107) L 04/27/19 23: Carbon Dioxide 21.9 mmol/L (21-32) 04/27/19 23: BUN 27 mg/dL (7-18) H 04/27/19 23:27 Creatinine 1.99 mg/dL (0.70-1.30) H 04/27/19 23:27 Est GFR (MDRD) Af Amer 43 (>60) L 04/27/19 23:27 Est GFR (MDRD) Non-Af 36 (>60) L 04/27/19 23:27 Glucose 238 mg/dL (65-99) H 04/27/19 23:27 Calcium 9.2 mg/dL (8.5-10.1) 04/27/19 23:27 Corrected Calcium 10.2 mg/dL (8.5-10.1) H 04/27/19 23:27 Total Bilirubin 1.10 mg/dL (0.2-1.0) H 04/27/19 23:27 AST 12 Units/L (15-37) L 04/27/19 23:27 ALT 8 Units/L (12-78) L 04/27/19 23:27 Alkaline Phosphatase 145 Units/L (46-116) H 04/27/19 23:27 Total Protein 7.1 g/dL (6.4-8.2) 04/27/19 23:27 Albumin 2.7 g/dL (3.4-5.0) L 04/27/19 23:27 Globulin 4.4 g/dL (2.5-4.5) 04/27/19 23:27 Albumin/Globulin Ratio 0.6 Ratio (1.1-2.1) L 04/27/19 23:27 Opioid Opioid Risk Tool Total: 0 Total Score Risk Category: Low Risk Copyright: Brayan LOVELL predicting aberrant behaviors Instructions Forms: Excuse From Work
[2019-04-27] MEDS ORDERED: ZOFRAN INJ 4 MG VIAL IVP ONE (23:37)
[2019-04-27] MEDS ORDERED: NS 1000 ML 1,000 ML IV ONE (23:42)
[2019-04-27] MEDS ORDERED: NS 1000 ML 1,000 ML ONE (23:44)
[2019-04-27] MEDS ORDERED: ZOFRAN INJ 4 MG VIAL ONE (23:44)
[2019-04-27 23:55] LABS: BASOPHILS % (AUTO) 0.2 % (0.2-1.0); EOSINOPHILS % (AUTO) 0.1 % (0.9-2.9); HEMATOCRIT 34.6 % (42.0-54.0); HEMOGLOBIN 11.9 g/dL (13.5-18.0); LYMPHOCYTES # (AUTO) 0.8 X10^3/uL (1.3-2.9); LYMPHOCYTES % (AUTO) 6.2 % (21.0-51.0); MEAN CORPUSCULAR HEMOGLOBIN 31.5 pg (27.0-34.0); MEAN CORPUSCULAR HGB CONC 34.6 g/dL (33.0-35.0); MEAN CORPUSCULAR VOLUME 91.3 fL (80.0-100.0); MEAN PLATELET VOLUME 8.8 fL (7.4-11.0); MONOCYTES # (AUTO) 0.7 x10^3/uL (0.3-0.8); MONOCYTES % (AUTO) 5.6 % (0.0-13.0); NEUTROPHILS # (AUTO) 11.2 x10^3/uL (2.2-4.8); NEUTROPHILS % (AUTO) 87.9 % (42.0-75.0); PLATELET COUNT 148 X10^3/uL (150.0-450.0); RED BLOOD COUNT 3.79 X10^6/uL (4.7-6.0); RED CELL DISTRIBUTION WIDTH 13.7 % (11.6-16.5); WHITE BLOOD COUNT 12.8 X10^3/uL (3.6-10.0)
[2019-04-28 00:05] LABS: ALBUMIN 2.7 g/dL (3.4-5.0); CALCIUM 9.2 mg/dL (8.5-10.1); CARBON DIOXIDE 21.9 mmol/L (21-32); COR CA(FOR HYPOALB) 10.2 mg/dL (8.5-10.1); CREATININE 1.99 mg/dL (0.70-1.30); TOTAL PROTEIN 7.1 g/dL (6.4-8.2)
--- NOTE | 2019-04-28 01:30 | RAD ---
Chest radiograph, single view. History: Cough. Comparison: 10/13/2018. Findings: The cardiac silhouette is enlarged with median sternotomy changes. There is a moderate right basilar pleural parenchymal opacity, likely reflecting pleural effusion and adjacent airspace disease. There is elevation of the left hemidiaphragm. The left lung is largely clear. No acute osseous findings. Conclusion: Right basilar pleural parenchymal opacity, concerning for pneumonia and adjacent pleural effusion. Reported By:
[2019-04-28] MEDS ORDERED: ROCEPHIN VIAL 1 GRAM IVP ONE (01:41)
[2019-04-28] MEDS ORDERED: ROCEPHIN VIAL 1 GRAM ONE (02:00)
[2019-04-28] MEDS ORDERED: LEVAQUIN PREMIX IV 750 MG 750 MG/150 ML BAG IV ONE ×2 (02:25→02:42)
[2019-04-28] MEDS ORDERED: TUSSIONEX PENNKINETIC SUSP PO PRN (03:14)
[2019-04-28] MEDS ORDERED: SALINE 3% 15 ML NEB TX NEB ONE (03:25)
[2019-04-28] MEDS ORDERED: SALINE 3% 15 ML NEB TX ONE (03:29)
[2019-04-28] MEDS ORDERED: DUONEB 0.5 MG/3 MG ONE (03:53)
[2019-04-28] MEDS ORDERED: NS 1/2 1000 ML IV 1,000 ML IV SCH (04:00)
[2019-04-28] MEDS: DUONEB 0.5 MG/3 MG NEB SCH ×5 (04:10→21:02)
[2019-04-28] MEDS ORDERED: NORCO 5/325 MG TAB PO PRN (04:45)
[2019-04-28 05:29] LABS: BASOPHILS % (AUTO) 0.2 % (0.2-1.0); EOSINOPHILS % (AUTO) 0.2 % (0.9-2.9); HEMATOCRIT 31.6 % (42.0-54.0); HEMOGLOBIN 10.9 g/dL (13.5-18.0); LYMPHOCYTES # (AUTO) 1.5 X10^3/uL (1.3-2.9); LYMPHOCYTES % (AUTO) 12.2 % (21.0-51.0); MEAN CORPUSCULAR HEMOGLOBIN 31.1 pg (27.0-34.0); MEAN CORPUSCULAR HGB CONC 34.4 g/dL (33.0-35.0); MEAN CORPUSCULAR VOLUME 90.5 fL (80.0-100.0); MEAN PLATELET VOLUME 8.3 fL (7.4-11.0); MONOCYTES # (AUTO) 0.7 x10^3/uL (0.3-0.8); MONOCYTES % (AUTO) 5.9 % (0.0-13.0); NEUTROPHILS % (AUTO) 81.5 % (42.0-75.0); PLATELET COUNT 129 X10^3/uL (150.0-450.0); RED CELL DISTRIBUTION WIDTH 13.8 % (11.6-16.5); WHITE BLOOD COUNT 12.3 X10^3/uL (3.6-10.0)
[2019-04-28 05:44] LABS: ALBUMIN 2.3 g/dL (3.4-5.0); CALCIUM 8.8 mg/dL (8.5-10.1); CARBON DIOXIDE 23.6 mmol/L (21-32); COR CA(FOR HYPOALB) 10.2 mg/dL (8.5-10.1); CREATININE 1.77 mg/dL (0.70-1.30); TOTAL PROTEIN 6.6 g/dL (6.4-8.2)
[2019-04-28] MEDS ORDERED: FORTAZ or TAZICEF VIAL INJ IVP SCH (06:00)
[2019-04-28] MEDS ORDERED: FORTAZ or TAZICEF VIAL INJ ONE (06:41)
[2019-04-28] MEDS ORDERED: ZOFRAN INJ 4 MG VIAL ONE (07:20)
[2019-04-28] MEDS: ROBITUSSIN DM PO SCH ×4 (09:34→20:49)
[2019-04-28] MEDS ORDERED: LEVAQUIN PREMIX IV 500 MG 500 MG/100 ML BAG IV SCH (10:00)
[2019-04-28] MEDS: NS 1000 ML 1,000 ML IV SCH ×4 (10:30→22:16)
[2019-04-28] MEDS: ZOFRAN INJ 4 MG VIAL IVP PRN (14:36)
[2019-04-28] MEDS: ALBUMIN HUMAN 25%- 100 ML 100 ML IV SCH (14:42)
[2019-04-28 15:06] LABS: BILIRUBIN,URINE NEGATIVE (NEGATIVE); KETONES,URINE NEGATIVE (NEGATIVE); LEUKOCYTE ESTERASE ,URINE NEGATIVE (NEGATIVE); NITRITES,URINE NEGATIVE (NEGATIVE); UROBILINOGEN,URINE 1+ (NORMAL)
[2019-04-28 15:08] LABS: BLOOD/HEMOGLOBIN,URINE 3+ (NEGATIVE); GLUCOSE, URINE 4+ (NEGATIVE); PROTEIN,URINE 4+ (NEGATIVE)
[2019-04-28 15:20] LABS: APPEARANCE,URINE CLEAR (CLEAR); COLOR,URINE YELLOW (YELLOW)
[2019-04-28 15:23] LABS: RBC,URINE 0-2 /HPF (NONE SEEN); SQUAMOUS EPITHELIAL CELL,UR RARE /HPF (NEGATIVE)
[2019-04-28 15:24] LABS: AMORPHOUS SEDIMENT,UR TRACE /HPF (NEGATIVE); BACTERIA,URINE NEGATIVE /HPF (NEGATIVE); FINE GRANULAR CASTS,URINE RARE /LPF (NEGATIVE); HYALINE CASTS, URINE RARE /LPF (NEGATIVE)
[2019-04-28] MEDS ORDERED: PHENERGAN INJ 25 MG IM ONE (17:18)
[2019-04-28] MEDS: HumuLIN R SUBCUT PRN ×2 (18:14→20:50)
[2019-04-28] MEDS ORDERED: SNACK - Diabetic Appropriate PO SCH (20:00)
[2019-04-28] MEDS: LOPRESSOR TAB 25 MG PO SCH (20:49)
[2019-04-28] MEDS: FORTAZ or TAZICEF VIAL INJ IVP SCH (20:49)
[2019-04-28] MEDS: SNACK - Diabetic Appropriate PO SCH (20:54)
[2019-04-28] MEDS ORDERED: LOPRESSOR TAB 25 MG PO SCH (21:00)
[2019-04-28] MEDS ORDERED: LEVAQUIN TAB 750 MG PO SCH (21:00)
[2019-04-29] MEDS: ZOFRAN INJ 4 MG VIAL IVP PRN ×3 (05:29→21:52)
[2019-04-29 05:43] LABS: BASOPHILS % (AUTO) 0.4 % (0.2-1.0); EOSINOPHILS % (AUTO) 0.2 % (0.9-2.9); HEMATOCRIT 31.6 % (42.0-54.0); HEMOGLOBIN 10.8 g/dL (13.5-18.0); LYMPHOCYTES # (AUTO) 1.2 X10^3/uL (1.3-2.9); LYMPHOCYTES % (AUTO) 9.9 % (21.0-51.0); MEAN CORPUSCULAR HEMOGLOBIN 31.2 pg (27.0-34.0); MEAN CORPUSCULAR VOLUME 91.6 fL (80.0-100.0); MEAN PLATELET VOLUME 8.8 fL (7.4-11.0); MONOCYTES # (AUTO) 0.8 x10^3/uL (0.3-0.8); MONOCYTES % (AUTO) 6.8 % (0.0-13.0); NEUTROPHILS # (AUTO) 10.1 x10^3/uL (2.2-4.8); NEUTROPHILS % (AUTO) 82.7 % (42.0-75.0); PLATELET COUNT 136 X10^3/uL (150.0-450.0); RED BLOOD COUNT 3.45 X10^6/uL (4.7-6.0); RED CELL DISTRIBUTION WIDTH 13.5 % (11.6-16.5); WHITE BLOOD COUNT 12.2 X10^3/uL (3.6-10.0)
[2019-04-29 05:52] LABS: ALBUMIN 2.5 g/dL (3.4-5.0); CALCIUM 8.9 mg/dL (8.5-10.1); CARBON DIOXIDE 21.1 mmol/L (21-32); COR CA(FOR HYPOALB) 10.1 mg/dL (8.5-10.1); CREATININE 1.68 mg/dL (0.70-1.30); TOTAL PROTEIN 6.6 g/dL (6.4-8.2)
[2019-04-29] MEDS: MIRAPEX TAB 0.25 MG PO SCH ×3 (06:33→17:10)
[2019-04-29] MEDS: GLUCOTROL PO SCH ×2 (06:34→17:12)
[2019-04-29] MEDS: SINEMET (PLAIN) 25/100 MG PO SCH ×3 (06:37→17:12)
[2019-04-29] MEDS: HumuLIN R SUBCUT PRN ×2 (06:37→22:56)
--- NOTE | 2019-04-29 07:45 | RAD ---
HISTORY: Follow-up pneumonia Study: Chest AP portable Comparison: 04/28/2019 Findings: Patient is status post median sternotomy and CABG. Heart size difficult to assess due to obscuration of the right heart border by a moderately large right pleural effusion which also obscures the right middle and right lower lobe. The right upper lung field is clear as is the left lung. The left hemidiaphragm is elevated. Bony thorax is unremarkable. IMPRESSION: Right pleural effusion obscuring the lung markings in the right middle and right lower lobes unchanged from the prior examination Reported By:
[2019-04-29] MEDS: DUONEB 0.5 MG/3 MG NEB SCH ×4 (08:45→21:43)
[2019-04-29] MEDS: LEVAQUIN PREMIX IV 500 MG 500 MG/100 ML BAG IV SCH (08:56)
[2019-04-29] MEDS: FORTAZ or TAZICEF VIAL INJ IVP SCH ×2 (08:58→21:52)
[2019-04-29] MEDS: ROBITUSSIN DM PO SCH ×4 (08:58→21:52)
[2019-04-29] MEDS: ASPIRIN EC 81 MG PO SCH (08:58)
[2019-04-29] MEDS: LOPRESSOR TAB 25 MG PO SCH (08:59)
[2019-04-29] MEDS ORDERED: PATIENT'S HOME MEDICATION PO SCH (09:00)
[2019-04-29] MEDS: ALBUMIN HUMAN 25%- 100 ML 100 ML IV SCH (10:33)
[2019-04-29] MEDS ORDERED: PHARMACY CONSULT - DOSE _____ XX SCH (13:00)
[2019-04-29] MEDS: NS 1000 ML 1,000 ML IV SCH ×2 (13:51→13:54)
[2019-04-29] MEDS: LOVENOX INJ 40 MG SYR SC SCH (17:12)
--- NOTE | 2019-04-29 19:32 | DR.H&P ---
H&P - History & Physical for Day of: H&P Date: 04/28/19 - Chief Complaint Chief Complaint: C/C/C, NAUSEA/VOMITING, WEAKNESS - History of Present Illness History of Present Illness: IS A 68 YEAR OLD PATIENT OF [facility] WHO PRESENTED TO THE ER WITH COMPLAINTS OF COUGH, COLD, AND CONGESTION. HE ALSO REPORTS NAUSEA/VOMITING AND INCREASED WEAKENSS SINCE YESTERDAY. HE REPORTS BEING SEEN BY HIS PRIMARY CARE PHYSICIAN ON MONDAY AND WAS GIVEN A ROCEPHIN INJECTION. HE DENIES IMPROVEMENT IN SYMPTOMS. MEDICAL HISTORY INCLUDES CAD, CVA, DM, AND HTN, TRIPLE BYPASS IN 2016. ON ARRIVAL TO THE ER, VITALS WERE 98.0-86-18-97%-124/58. LABS WERE OBTAINED. ABNORMAL LAB VALUES INCLUDE THE FOLLOWING: WBC 12.8, RBC 3.79, HGB 11.9, HCT 34.6, PLT COUNT 148, SODIUM 129, CHLORIDE 97, BUN 27, CREATININE 1.99, GLUCOSE 238, TOTAL BILI 1.10, AST 12, ALT 8, ALK PHOS 145, ALBUMIN 2.7. SPUTUM CULTURES PENDING. A CHEST XRAY WAS OBTAINED AND REVEALED: Right basilar pleural parenchymal opacity, concerning for pneumonia and adjacent pleural effusion. HE WAS ADMITTED TO THE HOSPITAL FOR FURTHER EVALUATION AND TREATMENT OF RLL PNEUMONIA, DEHYDRATION, CHEST PAIN, AND GENERALIZED WEAKNESS. WE WILL START IV FORTAZ, IV LEVAQUIN, RESPIRATORY TREATMENTS, ALBUMIN 25% IV DAILY, AND WE WILL RESUME HIS HOME MEDICATIONS. OTHERWISE, WE WILL FOLLOW UP WITH LABS AND CHEST XRAY AND CONTINUE TO MONITOR. - Past Medical History Past Medical History: Coronary Artery Disease, Hypertension, Diabetes, CVA - Past Surgical History Surgical History: CABG/Valve Surgery, Other - Family History Family Medical History: Cancer, [place] - Social History Does any household member use tobacco: No Alcohol Use: None Drug Use: None Prescription drug monitoring program results: PDMP reviewed and no concerns identified - Medications Home Medications: No Known Drug Allergies Allergy (Verified 10/11/18 18:08) CONTINUE taking the following medications azithromycin 250 mg PO DAILY 04/28/19 [History] carbidopa-levodopa 1 tab PO TID 04/28/19 [History] pramipexole 0.25 mg PO TIDWM 04/28/19 [History] - Review of Systems Constitutional: Weakness Eyes: No Symptoms Reported ENT: Nose Congestion Respiratory: See HPI, Cough, Shortness of Breath Cardiovascular: Chest Pain Gastrointestinal: No Symptoms Reported Genitourinary: No Symptoms Reported Musculoskeletal: No Symptoms Reported Skin: No Symptoms Reported Neurological: Weakness - Physical Exam Vital Signs: Temperature 98.7 F Pulse Rate [Brachial] 83 Pulse Rate 77 Respiratory Rate 20 Blood Pressure [Right Arm] 149/70 Blood Pressure [Left Arm] 121/59 Blood Pressure 124/58 O2 Sat by Pulse Oximetry 94 Oriented: Normal Eyes: Normal Ear: Normal Nose: Normal Throat: Normal Respiratory: Diminished Throughout Cardiovascular: Normal. negative: S3, S4, Murmur : Normal Auscultation: Bowel Sounds: Normal Palpation: Normal Tenderness: Normal Skin: Normal Musculoskeletal: Normal Psychiatric: Normal Mood Description: Calm Affect: Normal Speech Pattern: Clear - Assessment/Plan (1) Pneumonia Qualifiers: Pneumonia type: due to unspecified organism Laterality: right Lung location: lower lobe of lung Qualified Code(s): J18.1 - Lobar pneumonia, unspecified organism Status: Acute Plan: IV ANTIBIOTICS, RESPIRATORY TX, SUPPLEMENTAL OXYGEN, CONTINUE TO MONITOR (2) Chest pain, exertional Status: Acute (3) Dehydration Status: Acute Plan: IV FLUIDS, CONTINUE TO MONITOR (4) Weakness Status: Acute - Allergies Allergies/Adverse Reactions: Allergies Allergy/AdvReac Type Severity Reaction Status Date / Time No Known Drug Allergies Allergy Verified 10/11/18 18:08
[2019-04-29] MEDS: PATIENT'S HOME MEDICATION PO SCH (21:53)
[2019-04-29] MEDS: SNACK - Diabetic Appropriate PO SCH (22:38)
[2019-04-30] MEDS: NS 1000 ML 1,000 ML IV SCH ×2 (02:45→18:11)
[2019-04-30 05:37] LABS: BASOPHILS % (AUTO) 0.2 % (0.2-1.0); EOSINOPHILS % (AUTO) 0.4 % (0.9-2.9); HEMATOCRIT 29.9 % (42.0-54.0); HEMOGLOBIN 10.5 g/dL (13.5-18.0); LYMPHOCYTES # (AUTO) 0.9 X10^3/uL (1.3-2.9); LYMPHOCYTES % (AUTO) 11.3 % (21.0-51.0); MEAN CORPUSCULAR HEMOGLOBIN 31.6 pg (27.0-34.0); MEAN CORPUSCULAR HGB CONC 35.3 g/dL (33.0-35.0); MEAN CORPUSCULAR VOLUME 89.7 fL (80.0-100.0); MEAN PLATELET VOLUME 8.3 fL (7.4-11.0); MONOCYTES # (AUTO) 0.6 x10^3/uL (0.3-0.8); MONOCYTES % (AUTO) 8.1 % (0.0-13.0); NEUTROPHILS # (AUTO) 6.4 x10^3/uL (2.2-4.8); PLATELET COUNT 140 X10^3/uL (150.0-450.0); RED BLOOD COUNT 3.33 X10^6/uL (4.7-6.0); RED CELL DISTRIBUTION WIDTH 13.5 % (11.6-16.5)
[2019-04-30 05:58] LABS: ALANINE AMINOTRANSFERASE 12 Units/L (12-78); ALBUMIN 2.5 g/dL (3.4-5.0); ALKALINE PHOSPHATASE 144 Units/L (46-116); ASPARTATE AMINO TRANSFERASE 24 Units/L (15-37); BLOOD UREA NITROGEN 23 mg/dL (7-18); CALCIUM 8.9 mg/dL (8.5-10.1); CARBON DIOXIDE 21.9 mmol/L (21-32); CHLORIDE 94 mmol/L (98-107); COR CA(FOR HYPOALB) 10.1 mg/dL (8.5-10.1); COR NA(FOR HYPERGLY) 128 mmol/L (136-145); CREATININE 1.47 mg/dL (0.70-1.30); TOTAL PROTEIN 6.7 g/dL (6.4-8.2); eGFR NON BLACK RACES 51 (>60)
[2019-04-30] MEDS ORDERED: LEVAQUIN TAB 750 MG PO SCH (06:00)
[2019-04-30 06:08] LABS: SODIUM 125 mmol/L (136-145)
[2019-04-30] MEDS: PHENERGAN INJ 25 MG IM PRN ×2 (06:10→21:55)
[2019-04-30] MEDS: HumuLIN R SUBCUT PRN ×2 (06:15→12:02)
--- NOTE | 2019-04-30 06:22 | RAD ---
HISTORY: Follow-up pneumonia Study: Chest AP portable Comparison: 04/29/2019 Findings: Patient is status post median sternotomy and CABG. Heart size difficult to assess due to obscuration of the right heart border by a large right pleural effusion which also obscures the lung markings in the right middle and right lower lobes. The remainder of the lung mata are clear. The bony thorax is unremarkable. IMPRESSION: No significant change from the prior examination Reported By:
[2019-04-30] MEDS: GLUCOTROL PO SCH ×2 (06:23→17:07)
[2019-04-30] MEDS: MIRAPEX TAB 0.25 MG PO SCH ×3 (06:23→17:07)
[2019-04-30] MEDS: SINEMET (PLAIN) 25/100 MG PO SCH ×3 (06:24→17:08)
[2019-04-30] MEDS: Atrovent NEB TX 0.02% NEB SCH ×5 (08:51→20:09)
[2019-04-30] MEDS: ALBUMIN HUMAN 25%- 100 ML 100 ML IV SCH (09:28)
[2019-04-30] MEDS: LOVENOX INJ 40 MG SYR SC SCH (09:30)
[2019-04-30] MEDS: FORTAZ or TAZICEF VIAL INJ IVP SCH ×2 (09:31→21:45)
[2019-04-30] MEDS: ROBITUSSIN DM PO SCH ×4 (09:31→21:40)
[2019-04-30] MEDS: ASPIRIN EC 81 MG PO SCH (09:31)
[2019-04-30] MEDS: LOPRESSOR TAB 25 MG PO SCH (09:31)
[2019-04-30] MEDS: LEVAQUIN PREMIX IV 500 MG 500 MG/100 ML BAG IV SCH (10:30)
[2019-04-30] MEDS ORDERED: VALIUM PO PRN (11:11)
[2019-04-30] MEDS: SNACK - Diabetic Appropriate PO SCH (21:45)
[2019-04-30] MEDS: PATIENT'S HOME MEDICATION PO SCH (21:46)
[2019-05-01] MEDS: NS 1000 ML 1,000 ML IV SCH (04:50)
--- NOTE | 2019-05-01 06:16 | RAD ---
HISTORY: Shortness of breath Study: Chest AP portable Comparison: 04/30/2019 Findings: The patient is status post median sternotomy and CABG. Heart size difficult to assess due to obscuration of the right heart border by a large right pleural effusion which also obscures the lung markings in the right middle and right lower lobes. The right apex is clear as is the left lung. The bony thorax is unremarkable. IMPRESSION: No change large right pleural effusion which obscures the lung markings in the right middle and right lower lobes. Reported By:
[2019-05-01 06:20] LABS: BASOPHILS % (AUTO) 0.2 % (0.2-1.0); EOSINOPHILS % (AUTO) 0.1 % (0.9-2.9); HEMATOCRIT 29.9 % (42.0-54.0); HEMOGLOBIN 10.7 g/dL (13.5-18.0); LYMPHOCYTES # (AUTO) 0.9 X10^3/uL (1.3-2.9); LYMPHOCYTES % (AUTO) 9.3 % (21.0-51.0); MEAN CORPUSCULAR HEMOGLOBIN 31.8 pg (27.0-34.0); MEAN CORPUSCULAR HGB CONC 35.9 g/dL (33.0-35.0); MEAN CORPUSCULAR VOLUME 88.7 fL (80.0-100.0); MEAN PLATELET VOLUME 8.4 fL (7.4-11.0); MONOCYTES # (AUTO) 0.9 x10^3/uL (0.3-0.8); MONOCYTES % (AUTO) 9.1 % (0.0-13.0); NEUTROPHILS # (AUTO) 7.6 x10^3/uL (2.2-4.8); NEUTROPHILS % (AUTO) 81.3 % (42.0-75.0); PLATELET COUNT 154 X10^3/uL (150.0-450.0); RED BLOOD COUNT 3.37 X10^6/uL (4.7-6.0); RED CELL DISTRIBUTION WIDTH 13.5 % (11.6-16.5); WHITE BLOOD COUNT 9.4 X10^3/uL (3.6-10.0)
[2019-05-01] MEDS: GLUCOTROL PO SCH ×3 (06:27→18:00)
[2019-05-01] MEDS: SINEMET (PLAIN) 25/100 MG PO SCH ×3 (06:28→18:05)
[2019-05-01] MEDS: MIRAPEX TAB 0.25 MG PO SCH ×3 (06:28→18:05)
[2019-05-01 06:34] LABS: ALANINE AMINOTRANSFERASE 11 Units/L (12-78); ALBUMIN 2.6 g/dL (3.4-5.0); ALKALINE PHOSPHATASE 171 Units/L (46-116); ASPARTATE AMINO TRANSFERASE 24 Units/L (15-37); BLOOD UREA NITROGEN 26 mg/dL (7-18); CALCIUM 8.6 mg/dL (8.5-10.1); CARBON DIOXIDE 18.5 mmol/L (21-32); CHLORIDE 92 mmol/L (98-107); COR CA(FOR HYPOALB) 9.7 mg/dL (8.5-10.1); COR NA(FOR HYPERGLY) 126 mmol/L (136-145); CREATININE 1.27 mg/dL (0.70-1.30); TOTAL PROTEIN 6.7 g/dL (6.4-8.2); eGFR NON BLACK RACES > 60 (>60)
[2019-05-01 06:40] LABS: SODIUM 124 mmol/L (136-145)
[2019-05-01] MEDS: Atrovent NEB TX 0.02% NEB SCH ×4 (08:23→20:23)
[2019-05-01] MEDS ORDERED: LASIX IVP ONE ×2 (08:56→08:58)
[2019-05-01 09:21] LABS: ABG BASE EXCESS -2.4 mmol/L (-2.0-2.0); ABG HCO3 21.4 mmol/L (22-26)
[2019-05-01 09:22] LABS: ABG ALLEN TEST POS
[2019-05-01] MEDS: LEVAQUIN PREMIX IV 500 MG 500 MG/100 ML BAG IV SCH (10:30)
[2019-05-01] MEDS: FORTAZ or TAZICEF VIAL INJ IVP SCH ×2 (10:30→22:14)
[2019-05-01] MEDS: LOVENOX INJ 40 MG SYR SC SCH (10:39)
[2019-05-01] MEDS: ROBITUSSIN DM PO SCH ×5 (10:40→22:13)
[2019-05-01] MEDS ORDERED: SALINE 3% 15 ML NEB TX NEB ONE (11:01)
[2019-05-01] MEDS: ALBUMIN HUMAN 25%- 100 ML 100 ML IV SCH (11:42)
[2019-05-01] MEDS: ASPIRIN EC 81 MG PO SCH (11:43)
[2019-05-01] MEDS: LOPRESSOR TAB 25 MG PO SCH (11:44)
[2019-05-01] MEDS: PULMICORT NEB TX 0.5 MG NEB SCH ×2 (13:24→20:22)
--- NOTE | 2019-05-01 21:34 | PCM.PROG ---
Progress Note - Progress Note for Day of Date of Exam: 04/29/19 - Subjective Subjective: WAS ADMITTED ON 04/28 FOR TREATMENT OF RLL PNEUMONIA, DEHYDRATION, CHEST PAIN, AND GENERALIZED WEAKNESS. TODAY, HE IS ALERT AND ORIENTED, LYING IN BED ON MORNING ROUNDS. HE CONTINUES WITH COMPLAINTS OF COUGH AND MODERATE SHORTNESS OF BREATH. FAMILY REPORTS THAT HE HAS BEEN ANXIOUS AND AGITATED THROUGHOUT THE NIGHT. ON EXAMINATION, HEART IS REGULAR IN RATE AND RHYTHM. BILATERAL LUNGS ARE NOTED WITH SCATTERED WHEEZING AND RHONCHI THIS MORNING. ABDOMEN IS ROUND, SOFT, AND NON-TENDER WITH NORMAL BOWEL SOUNDS IN ALL QUADRANTS. LOWER EXTREMITIES ARE NOTED WITH TRACE EDEMA THIS MORNING. HIS VITALS THIS MORNING ARE: 98.3-84-20-95%-130/61. LABS WERE OBTAINED. ABNORMAL LAB VALUES INCLUDE THE FOLLOWING: WBC 12.2, RBC 3.45, HGB 10.8, HCT 31.6, PLT COUNT 136, SODIUM 126, CHLORIDE 94, BUN 24, CREATININE 1.68, GLUCOSE 276, AST 45, ALT 6, ALK PHOS 128, ALBUMIN 2. BLOOD AND SPUTUM CULTURES ARE PENDING. A CHEST XRAY WAS OBTAINED AND REVEALED: Right pleural effusion obscuring the lung markings in the right middle and right lower lobes unchanged from the prior examination. HE IS CURRENTLY RECEIVING IV FLUIDS, IV ANTIBIOTICS, AND RESPIRATORY TX. TODAY, WE WILL OBTAIN AN ECHO. OTHERWISE, WE WILL FOLLOW UP WITH AM LABS AND CHEST XRAY AND CONTINUE TO MONITOR. - Past Medical Family Social History Past Med/Fam/Surg Hx: No changes since H&P Allergies: Allergies No Known Drug Allergies Allergy (Verified 10/11/18 18:08) - Review of Systems ROS: No change since H&P - Vital Signs and I&O's Vital Signs: Temperature 98.1 F Pulse Rate [Brachial] 95 Pulse Rate 79 Respiratory Rate 24 Blood Pressure [Right Arm] 168/90 Blood Pressure [Left Arm] 121/59 Blood Pressure 124/58 O2 Sat by Pulse Oximetry 97 Intake and Output: Intake & Output 04/29/19 04/30/19 05/01/19 05/02/19 11:59 11:59 11:59 11:59 Intake Total 2995 / 2995 2029 690 / 690 360 / 360 Output Total 150 / 150 1675 / 1675 Balance 2995 / 2995 2029 540 / 540 -1315 / -1315 - Physical Exam Oriented: Normal Eyes: Normal Ear: Normal Nose: Normal Throat: Normal Respiratory: Generalized, Diminished, Wheezes, Rhonchi Cardiovascular: Normal. negative: S3, S4, Murmur : Normal Auscultation: Bowel Sounds: Normal Palpation: Normal Tenderness: Normal Skin: Normal Musculoskeletal: Normal Psychiatric: Normal Mood Description: Calm Affect: Normal Speech Pattern: Unclear - Laboratory and Diagnostics Result Diagrams: 05/01/19 05:45 05/01/19 05:45 Labs: 05/01/19 12:44 Sputum - Expectorated Sputum - Final 04/29/19 18:38 Blood Blood Culture - Preliminary 04/29/19 18:35 Blood Blood Culture - Preliminary 04/28/19 09:33 Sputum - Expectorated Sputum Sputum Culture - Final 04/28/19 09:33 Sputum - Expectorated Sputum - Final Laboratory WBC 9.4 X10^3/uL (3.6-10.0) 05/01/19 05:45 RBC 3.37 X10^6/uL (4.7-6.0) L 05/01/19 05:45 Hgb 10.7 g/dL (13.5-18.0) L 05/01/19 05:45 Hct 29.9 % (42.0-54.0) L 05/01/19 05:45 MCV 88.7 fL (80.0-100.0) 05/01/19 05:45 MCH 31.8 pg (27.0-34.0) 05/01/19 05:45 MCHC 35.9 g/dL (33.0-35.0) H 05/01/19 05:45 RDW 13.5 % (11.6-16.5) 05/01/19 05:45 Plt Count 154 X10^3/uL (150.0-450.0) 05/01/19 05:45 MPV 8.4 fL (7.4-11.0) 05/01/19 05:45 Neut % (Auto) 81.3 % (42.0-75.0) H 05/01/19 05:45 Lymph % (Auto) 9.3 % (21.0-51.0) L 05/01/19 05:45 [place] % (Auto) 9.1 % (0.0-13.0) 05/01/19 05:45 Eos % (Auto) 0.1 % (0.9-2.9) L 05/01/19 05:45 Baso % (Auto) 0.2 % (0.2-1.0) 05/01/19 05:45 Neut # (Auto) 7.6 x10^3/uL (2.2-4.8) H 05/01/19 05:45 Lymph # (Auto) 0.9 X10^3/uL (1.3-2.9) L 05/01/19 05:45 [place] # (Auto) 0.9 x10^3/uL (0.3-0.8) H 05/01/19 05:45 Eos # (Auto) 0.0 x10^3/uL (0.0-0.2) 05/01/19 05:45 Baso # (Auto) 0.0 X10^3/uL (0.0-0.1) 05/01/19 05:45 Absolute Nucleated RBC 0.0 /100WBC 05/01/19 05:45 Sample Site Rrad 05/01/19 09:12 ABG pH 7.420 (7.35-7.45) 05/01/19 09:12 ABG pCO2 33.0 mmHg (35.0-45.0) L 05/01/19 09:12 ABG pO2 59.0 mmHg (80.0-100.0) L 05/01/19 09:12 ABG HCO3 21.4 mmol/L (22-26) L 05/01/19 09:12 ABG O2 Saturation 91.0 % (90-100) 05/01/19 09:12 ABG Base Excess -2.4 mmol/L (-2.0-2.0) L 05/01/19 09:12 Jaden Test Pos 05/01/19 09:12 A-a Gradient 49.0 mmHg 05/01/19 09:12 FiO2 21.0 05/01/19 09:12 Blood Gas Comments Pt buddy well elj 05/01/19 09:12 Sodium 124 mmol/L (136-145) L* 05/01/19 05:45 Corrected Sodium 126 mmol/L (136-145) L 05/01/19 05:45 Potassium 4.6 mmol/L (3.5-5.1) 05/01/19 05:45 Chloride 92 mmol/L (98-107) L 05/01/19 05:45 Carbon Dioxide 18.5 mmol/L (21-32) L 05/01/19 05:45 BUN 26 mg/dL (7-18) H 05/01/19 05:45 Creatinine 1.27 mg/dL (0.70-1.30) 05/01/19 05:45 Est GFR (MDRD) Af Amer > 60 (>60) 05/01/19 05:45 Est GFR (MDRD) Non-Af > 60 (>60) 05/01/19 05:45 Glucose 199 mg/dL (65-99) H 05/01/19 05:45 POC Glucose (mg/dL) 256 mg/dL (65-99) H 04/29/19 11:17 Calcium 8.6 mg/dL (8.5-10.1) 05/01/19 05:45 Corrected Calcium 9.7 mg/dL (8.5-10.1) 05/01/19 05:45 Total Bilirubin 1.20 mg/dL (0.2-1.0) H 05/01/19 05:45 AST 24 Units/L (15-37) 05/01/19 05:45 ALT 11 Units/L (12-78) L 05/01/19 05:45 Alkaline Phosphatase 171 Units/L (46-116) H 05/01/19 05:45 Total Protein 6.7 g/dL (6.4-8.2) 05/01/19 05:45 Albumin 2.6 g/dL (3.4-5.0) L 05/01/19 05:45 Globulin 4.1 g/dL (2.5-4.5) 05/01/19 05:45 Albumin/Globulin Ratio 0.6 Ratio (1.1-2.1) L 05/01/19 05:45 Total PSA 0.44 ng/mL (0.13-4.0) 04/30/19 05:16 Specimen Type Clean catch urine 04/28/19 14:30 Urine Color Yellow (YELLOW) 04/28/19 14:30 Urine Appearance Clear (CLEAR) 04/28/19 14:30 Urine pH 5.0 (5.0 - 8.0) 04/28/19 14:30 Ur Specific [place] 1.020 (1.000-1.030) 04/28/19 14:30 Urine Protein 4+ (NEGATIVE) 04/28/19 14:30 Urine Glucose (UA) 4+ (NEGATIVE) 04/28/19 14:30 Urine Ketones Negative (NEGATIVE) 04/28/19 14:30 Urine Occult Blood 3+ (NEGATIVE) 04/28/19 14:30 Urine Nitrite Negative (NEGATIVE) 04/28/19 14:30 Urine Bilirubin Negative (NEGATIVE) 04/28/19 14:30 Urine Urobilinogen 1+ (NORMAL) 04/28/19 14:30 Ur Leukocyte Esterase Negative (NEGATIVE) 04/28/19 14:30 Urine RBC 0-2 /HPF (NONE SEEN) 04/28/19 14:30 Urine WBC None seen /HPF (NONE SEEN) 04/28/19 14:30 Ur Squamous Epith Cells Rare /HPF (NEGATIVE) 04/28/19 14:30 Amorphous Sediment Trace /HPF (NEGATIVE) 04/28/19 14:30 Urine Bacteria Negative /HPF (NEGATIVE) 04/28/19 14:30 Hyaline Casts Rare /LPF (NEGATIVE) 04/28/19 14:30 Fine Granular Casts Rare /LPF (NEGATIVE) 04/28/19 14:30 Ur Culture Indicated? No/not indicated 04/28/19 14:30 - Plan (1) Pneumonia Status: Acute Qualifiers: Pneumonia type: due to unspecified organism Laterality: right Lung location: lower lobe of lung Qualified Code(s): J18.1 - Lobar pneumonia, unspecified organism Plan: IV ANTIBIOTICS, RESPIRATORY TX, SUPPLEMENTAL OXYGEN, CONTINUE TO MONITOR (2) Chest pain, exertional Status: Acute (3) Dehydration Status: Acute Plan: IV FLUIDS, CONTINUE TO MONITOR (4) Weakness Status: Acute
--- NOTE | 2019-05-01 21:40 | PCM.PROG ---
Progress Note - Progress Note for Day of Date of Exam: 04/30/19 - Subjective Subjective: WAS ADMITTED ON 04/28 FOR TREATMENT OF RLL PNEUMONIA, DEHYDRATION, CHEST PAIN, AND GENERALIZED WEAKNESS. TODAY, HE IS ALERT AND ORIENTED, LYING IN BED ON MORNING ROUNDS. HE CONTINUES WITH COMPLAINTS OF COUGH AND MODERATE SHORTNESS OF BREATH. FAMILY REPORTS THAT HE CONTINUES TO BE ANXIOUS AND AGITATED AT TIMES. ON EXAMINATION, HEART IS REGULAR IN RATE AND RHYTHM. BILATERAL LUNGS ARE NOTED WITH SCATTERED WHEEZING AND RHONCHI THIS MORNING. ABDOMEN IS ROUND, SOFT, AND NON-TENDER WITH NORMAL BOWEL SOUNDS IN ALL QUADRANTS. LOWER EXTREMITIES ARE NOTED WITH TRACE EDEMA THIS MORNING. HIS VITALS THIS MORNING ARE: 97.8-92-20-95%-145/73. LABS WERE OBTAINED. ABNORMAL LAB VALUES INCLUDE THE FOLLOWING: RBC 3.33, HGB 10.5, HCT 29.9, PLT COUNT 140, SODIUM 125, CHLORIDE 94, BUN 23, CREATININE 1.47, GLUCOSE 208, ALK PHOS 144, ALBUMIN 2.5. BLOOD AND SPUTUM CULTURES ARE PENDING. A CHEST XRAY WAS OBTAINED AND REVEALED: NO SIGNIFICANT CHANGES FROM YESTERDAY. ECHO REVEALED AN EJECTION FRACTION OF 57%. HE IS CURRENTLY RECEIVING IV FLUIDS, IV ANTIBIOTICS, AND RESPIRATORY TX. TODAY, WE WILL START VALIUM 5MG PO TID PRN AND ADD ATROVENT TO NEB TX. OTHERWISE, WE WILL FOLLOW UP WITH AM LABS AND CHEST XRAY AND CONTINUE TO MONITOR. - Past Medical Family Social History Past Med/Fam/Surg Hx: No changes since H&P Allergies: Allergies No Known Drug Allergies Allergy (Verified 10/11/18 18:08) - Review of Systems ROS: No change since H&P - Vital Signs and I&O's Vital Signs: Temperature 98.1 F Pulse Rate [Brachial] 95 Pulse Rate 79 Respiratory Rate 24 Blood Pressure [Right Arm] 168/90 Blood Pressure [Left Arm] 121/59 Blood Pressure 124/58 O2 Sat by Pulse Oximetry 97 Intake and Output: Intake & Output 04/29/19 04/30/19 05/01/19 05/02/19 11:59 11:59 11:59 11:59 Intake Total 2995 / 2995 2029 690 / 690 360 / 360 Output Total 150 / 150 1675 / 1675 Balance 2995 / 2995 2029 540 / 540 -1315 / -1315 - Physical Exam Oriented: Normal Eyes: Normal Ear: Normal Nose: Normal Throat: Normal Respiratory: Generalized, Diminished, Wheezes, Rhonchi Cardiovascular: Normal. negative: S3, S4, Murmur : Normal Auscultation: Bowel Sounds: Normal Tenderness: Normal Skin: Normal Musculoskeletal: Normal Psychiatric: Normal Mood Description: Calm Affect: Normal Speech Pattern: Unclear - Laboratory and Diagnostics Result Diagrams: 05/01/19 05:45 05/01/19 05:45 Labs: 05/01/19 12:44 Sputum - Expectorated Sputum - Final 04/29/19 18:38 Blood Blood Culture - Preliminary 04/29/19 18:35 Blood Blood Culture - Preliminary 04/28/19 09:33 Sputum - Expectorated Sputum Sputum Culture - Final 04/28/19 09:33 Sputum - Expectorated Sputum - Final Laboratory WBC 9.4 X10^3/uL (3.6-10.0) 05/01/19 05:45 RBC 3.37 X10^6/uL (4.7-6.0) L 05/01/19 05:45 Hgb 10.7 g/dL (13.5-18.0) L 05/01/19 05:45 Hct 29.9 % (42.0-54.0) L 05/01/19 05:45 MCV 88.7 fL (80.0-100.0) 05/01/19 05:45 MCH 31.8 pg (27.0-34.0) 05/01/19 05:45 MCHC 35.9 g/dL (33.0-35.0) H 05/01/19 05:45 RDW 13.5 % (11.6-16.5) 05/01/19 05:45 Plt Count 154 X10^3/uL (150.0-450.0) 05/01/19 05:45 MPV 8.4 fL (7.4-11.0) 05/01/19 05:45 Neut % (Auto) 81.3 % (42.0-75.0) H 05/01/19 05:45 Lymph % (Auto) 9.3 % (21.0-51.0) L 05/01/19 05:45 [place] % (Auto) 9.1 % (0.0-13.0) 05/01/19 05:45 Eos % (Auto) 0.1 % (0.9-2.9) L 05/01/19 05:45 Baso % (Auto) 0.2 % (0.2-1.0) 05/01/19 05:45 Neut # (Auto) 7.6 x10^3/uL (2.2-4.8) H 05/01/19 05:45 Lymph # (Auto) 0.9 X10^3/uL (1.3-2.9) L 05/01/19 05:45 [place] # (Auto) 0.9 x10^3/uL (0.3-0.8) H 05/01/19 05:45 Eos # (Auto) 0.0 x10^3/uL (0.0-0.2) 05/01/19 05:45 Baso # (Auto) 0.0 X10^3/uL (0.0-0.1) 05/01/19 05:45 Absolute Nucleated RBC 0.0 /100WBC 05/01/19 05:45 Sample Site Rrad 05/01/19 09:12 ABG pH 7.420 (7.35-7.45) 05/01/19 09:12 ABG pCO2 33.0 mmHg (35.0-45.0) L 05/01/19 09:12 ABG pO2 59.0 mmHg (80.0-100.0) L 05/01/19 09:12 ABG HCO3 21.4 mmol/L (22-26) L 05/01/19 09:12 ABG O2 Saturation 91.0 % (90-100) 05/01/19 09:12 ABG Base Excess -2.4 mmol/L (-2.0-2.0) L 05/01/19 09:12 Jaden Test Pos 05/01/19 09:12 A-a Gradient 49.0 mmHg 05/01/19 09:12 FiO2 21.0 05/01/19 09:12 Blood Gas Comments Pt buddy well elj 05/01/19 09:12 Sodium 124 mmol/L (136-145) L* 05/01/19 05:45 Corrected Sodium 126 mmol/L (136-145) L 05/01/19 05:45 Potassium 4.6 mmol/L (3.5-5.1) 05/01/19 05:45 Chloride 92 mmol/L (98-107) L 05/01/19 05:45 Carbon Dioxide 18.5 mmol/L (21-32) L 05/01/19 05:45 BUN 26 mg/dL (7-18) H 05/01/19 05:45 Creatinine 1.27 mg/dL (0.70-1.30) 05/01/19 05:45 Est GFR (MDRD) Af Amer > 60 (>60) 05/01/19 05:45 Est GFR (MDRD) Non-Af > 60 (>60) 05/01/19 05:45 Glucose 199 mg/dL (65-99) H 05/01/19 05:45 POC Glucose (mg/dL) 256 mg/dL (65-99) H 04/29/19 11:17 Calcium 8.6 mg/dL (8.5-10.1) 05/01/19 05:45 Corrected Calcium 9.7 mg/dL (8.5-10.1) 05/01/19 05:45 Total Bilirubin 1.20 mg/dL (0.2-1.0) H 05/01/19 05:45 AST 24 Units/L (15-37) 05/01/19 05:45 ALT 11 Units/L (12-78) L 05/01/19 05:45 Alkaline Phosphatase 171 Units/L (46-116) H 05/01/19 05:45 Total Protein 6.7 g/dL (6.4-8.2) 05/01/19 05:45 Albumin 2.6 g/dL (3.4-5.0) L 05/01/19 05:45 Globulin 4.1 g/dL (2.5-4.5) 05/01/19 05:45 Albumin/Globulin Ratio 0.6 Ratio (1.1-2.1) L 05/01/19 05:45 Total PSA 0.44 ng/mL (0.13-4.0) 04/30/19 05:16 Specimen Type Clean catch urine 04/28/19 14:30 Urine Color Yellow (YELLOW) 04/28/19 14:30 Urine Appearance Clear (CLEAR) 04/28/19 14:30 Urine pH 5.0 (5.0 - 8.0) 04/28/19 14:30 Ur Specific [place] 1.020 (1.000-1.030) 04/28/19 14:30 Urine Protein 4+ (NEGATIVE) 04/28/19 14:30 Urine Glucose (UA) 4+ (NEGATIVE) 04/28/19 14:30 Urine Ketones Negative (NEGATIVE) 04/28/19 14:30 Urine Occult Blood 3+ (NEGATIVE) 04/28/19 14:30 Urine Nitrite Negative (NEGATIVE) 04/28/19 14:30 Urine Bilirubin Negative (NEGATIVE) 04/28/19 14:30 Urine Urobilinogen 1+ (NORMAL) 04/28/19 14:30 Ur Leukocyte Esterase Negative (NEGATIVE) 04/28/19 14:30 Urine RBC 0-2 /HPF (NONE SEEN) 04/28/19 14:30 Urine WBC None seen /HPF (NONE SEEN) 04/28/19 14:30 Ur Squamous Epith Cells Rare /HPF (NEGATIVE) 04/28/19 14:30 Amorphous Sediment Trace /HPF (NEGATIVE) 04/28/19 14:30 Urine Bacteria Negative /HPF (NEGATIVE) 04/28/19 14:30 Hyaline Casts Rare /LPF (NEGATIVE) 04/28/19 14:30 Fine Granular Casts Rare /LPF (NEGATIVE) 04/28/19 14:30 Ur Culture Indicated? No/not indicated 04/28/19 14:30 - Plan (1) Pneumonia Status: Acute Qualifiers: Pneumonia type: due to unspecified organism Laterality: right Lung location: lower lobe of lung Qualified Code(s): J18.1 - Lobar pneumonia, unspecified organism Plan: IV ANTIBIOTICS, RESPIRATORY TX, SUPPLEMENTAL OXYGEN, CONTINUE TO MONITOR (2) Chest pain, exertional Status: Acute (3) Dehydration Status: Acute Plan: IV FLUIDS, CONTINUE TO MONITOR (4) Weakness Status: Acute
[2019-05-01] MEDS: SNACK - Diabetic Appropriate PO SCH (22:14)
[2019-05-01] MEDS: PATIENT'S HOME MEDICATION PO SCH (22:15)
[2019-05-01] MEDS: HumuLIN R SUBCUT PRN (22:46)
--- NOTE | 2019-05-02 06:12 | RAD ---
HISTORY: Shortness of breath Study: Chest AP portable Comparison: 05/01/2019 Findings: The patient is status post median sternotomy and CABG. Once again the heart size is difficult to assess due to obscuration of the right heart border by a large right pleural effusion which obscures the right middle and right lower lobe. The right apex and left lung are clear. The bony thorax is unremarkable. IMPRESSION: No significant change from the prior examination Reported By:
[2019-05-02] MEDS: MIRAPEX TAB 0.25 MG PO SCH ×2 (06:13→12:37)
[2019-05-02] MEDS: GLUCOTROL PO SCH (06:13)
[2019-05-02] MEDS: SINEMET (PLAIN) 25/100 MG PO SCH ×2 (06:14→12:38)
[2019-05-02 06:21] LABS: BASOPHILS % (AUTO) 0.2 % (0.2-1.0); EOSINOPHILS # (AUTO) 0.1 x10^3/uL (0.0-0.2); EOSINOPHILS % (AUTO) 0.6 % (0.9-2.9); HEMATOCRIT 31.1 % (42.0-54.0); LYMPHOCYTES # (AUTO) 1.1 X10^3/uL (1.3-2.9); LYMPHOCYTES % (AUTO) 11.2 % (21.0-51.0); MEAN CORPUSCULAR HEMOGLOBIN 31.2 pg (27.0-34.0); MEAN CORPUSCULAR HGB CONC 35.4 g/dL (33.0-35.0); MEAN CORPUSCULAR VOLUME 88.1 fL (80.0-100.0); MEAN PLATELET VOLUME 8.3 fL (7.4-11.0); MONOCYTES % (AUTO) 10.7 % (0.0-13.0); NEUTROPHILS # (AUTO) 7.5 x10^3/uL (2.2-4.8); NEUTROPHILS % (AUTO) 77.3 % (42.0-75.0); PLATELET COUNT 165 X10^3/uL (150.0-450.0); RED BLOOD COUNT 3.53 X10^6/uL (4.7-6.0); RED CELL DISTRIBUTION WIDTH 13.6 % (11.6-16.5); WHITE BLOOD COUNT 9.8 X10^3/uL (3.6-10.0)
[2019-05-02 06:43] LABS: ALANINE AMINOTRANSFERASE 9 Units/L (12-78); ALBUMIN 2.6 g/dL (3.4-5.0); ALKALINE PHOSPHATASE 167 Units/L (46-116); ASPARTATE AMINO TRANSFERASE 26 Units/L (15-37); BLOOD UREA NITROGEN 30 mg/dL (7-18); CARBON DIOXIDE 22.4 mmol/L (21-32); CHLORIDE 94 mmol/L (98-107); COR CA(FOR HYPOALB) 10.1 mg/dL (8.5-10.1); COR NA(FOR HYPERGLY) 127 mmol/L (136-145); CREATININE 1.39 mg/dL (0.70-1.30); SODIUM 126 mmol/L (136-145); TOTAL PROTEIN 6.7 g/dL (6.4-8.2); eGFR NON BLACK RACES 54 (>60)
[2019-05-02] MEDS: NS 1000 ML 1,000 ML IV SCH ×2 (06:46→21:59)
[2019-05-02] MEDS: Atrovent NEB TX 0.02% NEB SCH ×4 (09:10→20:49)
[2019-05-02] MEDS: PULMICORT NEB TX 0.5 MG NEB SCH ×2 (09:10→20:49)
[2019-05-02] MEDS: LOPRESSOR TAB 25 MG PO SCH (09:36)
[2019-05-02] MEDS: ASPIRIN EC 81 MG PO SCH (09:36)
[2019-05-02] MEDS: ROBITUSSIN DM PO SCH ×3 (09:37→22:00)
[2019-05-02] MEDS: ALBUMIN HUMAN 25%- 100 ML 100 ML IV SCH (09:37)
[2019-05-02] MEDS: LEVAQUIN PREMIX IV 500 MG 500 MG/100 ML BAG IV SCH (09:37)
[2019-05-02] MEDS: LOVENOX INJ 40 MG SYR SC SCH (09:38)
[2019-05-02] MEDS: FORTAZ or TAZICEF VIAL INJ IVP SCH ×2 (09:38→22:00)
[2019-05-02] MEDS: HumuLIN R SUBCUT PRN (12:38)
--- NOTE | 2019-05-02 21:43 | PCM.PROG ---
Progress Note - Progress Note for Day of Date of Exam: 05/01/19 - Subjective Subjective: WAS ADMITTED ON 04/28 FOR TREATMENT OF RLL PNEUMONIA, DEHYDRATION, CHEST PAIN, AND GENERALIZED WEAKNESS. TODAY, HE IS LYING IN CHAIR WITH EYES CLOSED ON MORNING ROUNDS. HE IS DIFFICULT TO AROUSE AND HAS LABORED BREATHING THIS MORNING. HE CONTINUES WITH COMPLAINTS OF COUGH AND MODERATE SHORTNESS OF BREATH. FAMILY REPORTS THAT HE HAS HAD INCREASED AGITATION THROUGHOUT THE NIGHT. ON EXAMINATION, HE IS SLIGHTLY TACHYCARDIC. BILATERAL LUNGS ARE NOTED WITH SCATTERED WHEEZING AND RHONCHI THIS MORNING. ABDOMEN IS ROUND, SOFT, AND NON-TENDER WITH NORMAL BOWEL SOUNDS IN ALL QUADRANTS. LOWER EXTREMITIES ARE NOTED WITH 1+ PITTING EDEMA THIS MORNING. HIS VITALS THIS MORNING ARE: 98.0-107-22-96%-165/83. LABS WERE OBTAINED. ABNORMAL LAB VALUES INCLUDE THE FOLLOWING: RBC 3.37, HGB 10.7, HCT 29.9, SODIUM 124, CHLORIDE 92, CARBON DIOXIDE 18.5, BUN 26, GLUCOSE 199, TOTAL BILI 1.20, ALT 11, ALK PHOS 171, ALBUMIN 2.6. BLOOD AND SPUTUM CULTURES ARE PENDING. A CHEST XRAY WAS OBTAINED AND REVEALED: No change large right pleural effusion which obscures the lung markings in the right middle and right lower lobes. ECHO REVEALED AN EJECTION FRACTION OF 57%. HE IS CURRENTLY RECEIVING IV FLUIDS, IV ANTIBIOTICS, AND RESPIRATORY TX. TODAY, WE WILL START ZYPREXA 2.5MG PO BID, LASIX 40 MG IV BID, P ULMICORT TO NEB TX, AND ORDER FOR HIM TO WEAR THE BIPAP. OTHERWISE, WE WILL FOLLOW UP WITH AM LABS AND CHEST XRAY AND CONTINUE TO MONITOR. - Past Medical Family Social History Past Med/Fam/Surg Hx: No changes since H&P Allergies: Allergies No Known Drug Allergies Allergy (Verified 10/11/18 18:08) - Review of Systems ROS: No change since H&P - Vital Signs and I&O's Vital Signs: Temperature 98.3 F Pulse Rate [Brachial] 97 Pulse Rate 96 Respiratory Rate 22 Blood Pressure [Right Arm] 129/80 Blood Pressure [Left Arm] 168/86 Blood Pressure 124/58 O2 Sat by Pulse Oximetry 96 Intake and Output: Intake & Output 07/16/19 07/17/19 07/18/19 07/19/19 11:59 11:59 11:59 11:59 Intake Total 2029 690 / 690 820 / 820 360 / 360 Output Total 150 / 150 3950 / 3950 500 / 500 Balance 2029 540 / 540 -3130 / -3130 -140 / -140 - Physical Exam Oriented: Normal Eyes: Normal Ear: Normal Nose: Normal Throat: Normal Respiratory: Generalized, Diminished, Wheezes, Rhonchi Cardiovascular: Normal, Tachycardia. negative: S3, S4, Murmur : Normal Auscultation: Bowel Sounds: Normal Palpation: Normal Tenderness: Normal Skin: Normal Musculoskeletal: Normal Psychiatric: Normal Mood Description: Calm Affect: Normal Speech Pattern: Unclear - Laboratory and Diagnostics Result Diagrams: 05/02/19 05:40 05/02/19 05:40 Labs: 05/01/19 12:44 Sputum - Expectorated Sputum Sputum Culture - Preliminary 05/01/19 12:44 Sputum - Expectorated Sputum - Final 04/29/19 18:38 Blood Blood Culture - Preliminary 04/29/19 18:35 Blood Blood Culture - Preliminary 04/28/19 09:33 Sputum - Expectorated Sputum Sputum Culture - Final 04/28/19 09:33 Sputum - Expectorated Sputum - Final Laboratory WBC 9.8 X10^3/uL (3.6-10.0) 05/02/19 05:40 RBC 3.53 X10^6/uL (4.7-6.0) L 05/02/19 05:40 Hgb 11.0 g/dL (13.5-18.0) L 05/02/19 05:40 Hct 31.1 % (42.0-54.0) L 05/02/19 05:40 MCV 88.1 fL (80.0-100.0) 05/02/19 05:40 MCH 31.2 pg (27.0-34.0) 05/02/19 05:40 MCHC 35.4 g/dL (33.0-35.0) H 05/02/19 05:40 RDW 13.6 % (11.6-16.5) 05/02/19 05:40 Plt Count 165 X10^3/uL (150.0-450.0) 05/02/19 05:40 MPV 8.3 fL (7.4-11.0) 05/02/19 05:40 Neut % (Auto) 77.3 % (42.0-75.0) H 05/02/19 05:40 Lymph % (Auto) 11.2 % (21.0-51.0) L 05/02/19 05:40 [place] % (Auto) 10.7 % (0.0-13.0) 05/02/19 05:40 Eos % (Auto) 0.6 % (0.9-2.9) L 05/02/19 05:40 Baso % (Auto) 0.2 % (0.2-1.0) 05/02/19 05:40 Neut # (Auto) 7.5 x10^3/uL (2.2-4.8) H 05/02/19 05:40 Lymph # (Auto) 1.1 X10^3/uL (1.3-2.9) L 05/02/19 05:40 [place] # (Auto) 1.0 x10^3/uL (0.3-0.8) H 05/02/19 05:40 Eos # (Auto) 0.1 x10^3/uL (0.0-0.2) 05/02/19 05:40 Baso # (Auto) 0.0 X10^3/uL (0.0-0.1) 05/02/19 05:40 Absolute Nucleated RBC 0.0 /100WBC 05/02/19 05:40 Sample Site Rrad 05/01/19 09:12 ABG pH 7.420 (7.35-7.45) 05/01/19 09:12 ABG pCO2 33.0 mmHg (35.0-45.0) L 05/01/19 09:12 ABG pO2 59.0 mmHg (80.0-100.0) L 05/01/19 09:12 ABG HCO3 21.4 mmol/L (22-26) L 05/01/19 09:12 ABG O2 Saturation 91.0 % (90-100) 05/01/19 09:12 ABG Base Excess -2.4 mmol/L (-2.0-2.0) L 05/01/19 09:12 Jaden Test Pos 05/01/19 09:12 A-a Gradient 49.0 mmHg 05/01/19 09:12 FiO2 21.0 05/01/19 09:12 Blood Gas Comments Pt buddy well elj 05/01/19 09:12 Sodium 126 mmol/L (136-145) L 05/02/19 05:40 Corrected Sodium 127 mmol/L (136-145) L 05/02/19 05:40 Potassium 4.3 mmol/L (3.5-5.1) 05/02/19 05:40 Chloride 94 mmol/L (98-107) L 05/02/19 05:40 Carbon Dioxide 22.4 mmol/L (21-32) 05/02/19 05:40 BUN 30 mg/dL (7-18) H 05/02/19 05:40 Creatinine 1.39 mg/dL (0.70-1.30) H 05/02/19 05:40 Est GFR (MDRD) Af Amer > 60 (>60) 05/02/19 05:40 Est GFR (MDRD) Non-Af 54 (>60) L 05/02/19 05:40 Glucose 138 mg/dL (65-99) H 05/02/19 05:40 POC Glucose (mg/dL) 256 mg/dL (65-99) H 04/29/19 11:17 Calcium 9.0 mg/dL (8.5-10.1) 05/02/19 05:40 Corrected Calcium 10.1 mg/dL (8.5-10.1) 05/02/19 05:40 Total Bilirubin 0.90 mg/dL (0.2-1.0) 05/02/19 05:40 AST 26 Units/L (15-37) 05/02/19 05:40 ALT 9 Units/L (12-78) L 05/02/19 05:40 Alkaline Phosphatase 167 Units/L (46-116) H 05/02/19 05:40 Total Protein 6.7 g/dL (6.4-8.2) 05/02/19 05:40 Albumin 2.6 g/dL (3.4-5.0) L 05/02/19 05:40 Globulin 4.1 g/dL (2.5-4.5) 05/02/19 05:40 Albumin/Globulin Ratio 0.6 Ratio (1.1-2.1) L 05/02/19 05:40 Total PSA 0.44 ng/mL (0.13-4.0) 04/30/19 05:16 Specimen Type Clean catch urine 04/28/19 14:30 Urine Color Yellow (YELLOW) 04/28/19 14:30 Urine Appearance Clear (CLEAR) 04/28/19 14:30 Urine pH 5.0 (5.0 - 8.0) 04/28/19 14:30 Ur Specific [place] 1.020 (1.000-1.030) 04/28/19 14:30 Urine Protein 4+ (NEGATIVE) 04/28/19 14:30 Urine Glucose (UA) 4+ (NEGATIVE) 04/28/19 14:30 Urine Ketones Negative (NEGATIVE) 04/28/19 14:30 Urine Occult Blood 3+ (NEGATIVE) 04/28/19 14:30 Urine Nitrite Negative (NEGATIVE) 04/28/19 14:30 Urine Bilirubin Negative (NEGATIVE) 04/28/19 14:30 Urine Urobilinogen 1+ (NORMAL) 04/28/19 14:30 Ur Leukocyte Esterase Negative (NEGATIVE) 04/28/19 14:30 Urine RBC 0-2 /HPF (NONE SEEN) 04/28/19 14:30 Urine WBC None seen /HPF (NONE SEEN) 04/28/19 14:30 Ur Squamous Epith Cells Rare /HPF (NEGATIVE) 04/28/19 14:30 Amorphous Sediment Trace /HPF (NEGATIVE) 04/28/19 14:30 Urine Bacteria Negative /HPF (NEGATIVE) 04/28/19 14:30 Hyaline Casts Rare /LPF (NEGATIVE) 04/28/19 14:30 Fine Granular Casts Rare /LPF (NEGATIVE) 04/28/19 14:30 Ur Culture Indicated? No/not indicated 04/28/19 14:30 - Plan (1) Pneumonia Status: Acute Qualifiers: Pneumonia type: due to unspecified organism Laterality: right Lung location: lower lobe of lung Qualified Code(s): J18.1 - Lobar pneumonia, unspecified organism Plan: IV ANTIBIOTICS, RESPIRATORY TX, SUPPLEMENTAL OXYGEN, CONTINUE TO MONITOR. LASIX 40MG IV BID, PULMICORT NEB TX, BIPAP (2) Chest pain, exertional Status: Acute (3) Dehydration Status: Acute Plan: IV FLUIDS, CONTINUE TO MONITOR (4) Weakness Status: Acute
[2019-05-02] MEDS: SNACK - Diabetic Appropriate PO SCH (22:00)
[2019-05-02] MEDS: PATIENT'S HOME MEDICATION PO SCH (22:01)
[2019-05-03] MEDS: Atrovent NEB TX 0.02% NEB SCH ×2 (05:14→09:07)
[2019-05-03 05:40] LABS: BASOPHILS % (AUTO) 0.2 % (0.2-1.0); EOSINOPHILS % (AUTO) 0.3 % (0.9-2.9); HEMATOCRIT 29.4 % (42.0-54.0); HEMOGLOBIN 10.4 g/dL (13.5-18.0); LYMPHOCYTES % (AUTO) 9.6 % (21.0-51.0); MEAN CORPUSCULAR HEMOGLOBIN 31.9 pg (27.0-34.0); MEAN CORPUSCULAR HGB CONC 35.4 g/dL (33.0-35.0); MEAN CORPUSCULAR VOLUME 90.1 fL (80.0-100.0); MEAN PLATELET VOLUME 8.8 fL (7.4-11.0); MONOCYTES # (AUTO) 0.8 x10^3/uL (0.3-0.8); MONOCYTES % (AUTO) 7.3 % (0.0-13.0); NEUTROPHILS # (AUTO) 8.9 x10^3/uL (2.2-4.8); NEUTROPHILS % (AUTO) 82.6 % (42.0-75.0); PLATELET COUNT 166 X10^3/uL (150.0-450.0); RED BLOOD COUNT 3.27 X10^6/uL (4.7-6.0); RED CELL DISTRIBUTION WIDTH 13.8 % (11.6-16.5); WHITE BLOOD COUNT 10.8 X10^3/uL (3.6-10.0)
[2019-05-03 05:55] LABS: ALANINE AMINOTRANSFERASE 14 Units/L (12-78); ALBUMIN 2.6 g/dL (3.4-5.0); ALKALINE PHOSPHATASE 187 Units/L (46-116); ASPARTATE AMINO TRANSFERASE 24 Units/L (15-37); BLOOD UREA NITROGEN 32 mg/dL (7-18); CALCIUM 8.5 mg/dL (8.5-10.1); CARBON DIOXIDE 23.1 mmol/L (21-32); CHLORIDE 95 mmol/L (98-107); COR CA(FOR HYPOALB) 9.6 mg/dL (8.5-10.1); COR NA(FOR HYPERGLY) 128 mmol/L (136-145); CREATININE 1.44 mg/dL (0.70-1.30); SODIUM 127 mmol/L (136-145); TOTAL PROTEIN 6.5 g/dL (6.4-8.2); eGFR NON BLACK RACES 52 (>60)
[2019-05-03] MEDS: GLUCOTROL PO SCH (06:14)
[2019-05-03] MEDS: MIRAPEX TAB 0.25 MG PO SCH (06:14)
[2019-05-03] MEDS: SINEMET (PLAIN) 25/100 MG PO SCH (06:20)
--- NOTE | 2019-05-03 06:28 | RAD ---
HISTORY: Shortness of breath Study: Chest AP portable Comparison: 05/02/2019 Findings: The patient is status post median sternotomy and CABG. Once again the heart size difficult to assess due to obscuration of the right heart border by a large right pleural effusion which has increased somewhat since the prior examination. All but the clear right lung apex is obscured. The left lung is clear. The bony thorax is unremarkable. IMPRESSION: Increasing right pleural effusion obscuring the right lung with the exception of a clear right lung apex Reported By:
[2019-05-03] MEDS: PULMICORT NEB TX 0.5 MG NEB SCH (09:07)
[2019-05-03] MEDS: ROBITUSSIN DM PO SCH (09:34)
[2019-05-03] MEDS: ALBUMIN HUMAN 25%- 100 ML 100 ML IV SCH (09:35)
[2019-05-03] MEDS: LOPRESSOR TAB 25 MG PO SCH (09:36)
[2019-05-03] MEDS: ASPIRIN EC 81 MG PO SCH (09:36)
[2019-05-03] MEDS: LOVENOX INJ 40 MG SYR SC SCH (09:36)
[2019-05-03] MEDS: FORTAZ or TAZICEF VIAL INJ IVP SCH (09:37)
[2019-05-03] MEDS: LEVAQUIN PREMIX IV 500 MG 500 MG/100 ML BAG IV SCH (09:37)
[2019-05-03 13:07] VITALS: BP 132/69
== END 2019-05-03 13:00 | disposition home health service (06) | DRG 195 ==
LOC: ER 21:13 → MED/SURG 21:13
PROVIDERS: ADMIT Internal Medicine; ATTEND Internal Medicine
DX: R11.2 Nausea with vomiting, unspecified; R53.1 Weakness; R07.89 Other chest pain; R26.89 Other abnormalities of gait and mobility; E86.0 Dehydration; R13.11 Dysphagia, oral phase; I25.10 Atherosclerotic heart disease of native coronary artery without angina pectoris; I10 Essential (primary) hypertension; J18.8 Other pneumonia, unspecified organism
CPT/HCPCS: 36415; 36600; 71010; 71045; 80053; 81001; 82803; 84153; 85025; 87040; 87070; 87205; 92526; 92610; 93306; 94640; 94660; 94760; 96365; 96374; 96375; 97110; 97112; 97162; 97167; 99284; A4222; A4618; A7030; P9047; G0378; J0696; J0713; J1650; J1815; J1940; J1956; J2405; J2550; J7030; J7620; J7626; J7644